=== PATIENT | female | born 1970 | race Caucasian/White ===

== ENCOUNTER 2017-03-06 09:14 | Emergency (ER) | payer BC ==
[~2017-03-06] VITALS: Ht 165.1 cm; Wt 78.8 kg
[~2017-03-06 09:14] MED LIST: FLUO20CA20 OR; FLV400 PO; NAPR500T2 OR
[2017-03-06 09:18] VITALS: TEMP 36.8; Ht 165.1 cm; Wt 78.8 kg
[2017-03-06] MEDS ORDERED: KETOROLAC TROMETHAMINE 30 MG/ML VIAL IV STA (09:45)
[2017-03-06 10:12] LABS: BASO % 0.4 %; BASO ABS # 0.02 K/uL (0-0.2); HEMATOCRIT 29.5 % (37-47); IG% 0.2 %; LYMPH % 21.8 %; MEAN CELL VOLUME 110.1 fL (80-100); MEAN CORPUSCULAR HEMOGLOBIN 36.6 pg (25-34); MEAN CORPUSCULAR HGB CONC 33.2 g/dl (32-36); MEAN PLATELET VOLUME 10.5 fL (7.4-10.4); MONO % 6.7 %; NEUT % 69.9 %; PLATELET COUNT 197 K/uL (130-400); RED BLOOD COUNT 2.68 M/uL (4.2-5.4); WHITE BLOOD COUNT 5.05 K/uL (4.8-10.8)
[2017-03-06 10:29] LABS: COMPLETE YES; INR 1.1 (0.9-1.1); OVALOCYTES 1+; PARTIAL THROMBOPLASTIN RATIO 0.9; PROTHROMBIN TIME (PATIENT) 11.4 SECONDS (9.0-12.0)
[2017-03-06 10:33] LABS: BUN/CREATININE RATIO 23.4 (10-20); CALCIUM 8.5 mg/dl (8.5-10.1); CREATININE 0.57 mg/dl (0.60-1.20)
--- NOTE | 2017-03-06 10:46 | DIAGNOSTIC IMAGING REPORT ---
RIGHT SHOULDER MIN 2 VIEWS ROUTINE HISTORY:46 yearsFemaleeval for fx Right COMPARISON: Chest 12/23/2009 TECHNIQUE: 3 views of the right shoulder FINDINGS: No acute fracture or dislocation. No significant degenerative changes. Imaged lung harmon are clear. IMPRESSION: No acute bony abnormality. The above report was generated using voice recognition software. It may contain grammatical, syntax or spelling errors. Electronically signed by: Kevin Kendall M.D. 03/06/2017 10:45 AM Dictated Date/Time: 03/06/2017 10:44 AM
--- NOTE | 2017-03-06 10:49 | DIAGNOSTIC IMAGING REPORT ---
TWO VIEW CHEST CLINICAL HISTORY: Atypical chest pain. FINDINGS: PA and lateral chest radiographs are compared to study dated 11/26/2009. The heart is top normal for projection. The mediastinal contour is within normal limits. The pulmonary vasculature is noncongested. The lungs and pleural spaces are clear. There is no pneumothorax. The skeletal structures are osteopenic. The bony thorax appears intact. Cholecystectomy clips are seen in the right upper quadrant. IMPRESSION: No active disease in the chest. Electronically signed by: Gianfranco Shen M.D. 03/06/2017 10:48 AM Dictated Date/Time: 03/06/2017 10:47 AM
--- NOTE | 2017-03-06 10:51 | DIAGNOSTIC IMAGING REPORT ---
C-SPINE ROUTINE 4 OR 5 VIEWS HISTORY:46 yearsFemale acute neck pain which radiates into the right shoulder. COMPARISON: None available. TECHNIQUE: 6 views of the cervical spine FINDINGS: The seventh vertebral segment is not well seen on several images secondary to overlying soft tissue. There is intervertebral disc space narrowing at several levels, most pronounced at C6-C7. The visualized odontoid process and lateral pillars of C1 appear intact. There is multilevel uncovertebral spurring and facet arthropathy which causes a degree of neuroforaminal stenosis on the left at C3-C4 and on the right at C2-C3, C3-C4 and C4-C5. No acute fracture or dislocation. There is no prevertebral soft tissue swelling. Imaged lung apices appear clear. IMPRESSION: 1. No acute fracture or dislocation identified. 2. Multilevel intervertebral disc space narrowing, uncovertebral spurring and facet arthropathy as above results in varying degrees of neuroforaminal stenosis. The above report was generated using voice recognition software. It may contain grammatical, syntax or spelling errors. Electronically signed by: Kevin Kendall M.D. 03/06/2017 10:50 AM Dictated Date/Time: 03/06/2017 10:47 AM
[2017-03-06] MEDS ORDERED: OXYCODONE HCL IR 5 MG TAB (IMMEDIATE RELEASE) PO STA (11:03)
[2017-03-06] MEDS ORDERED: IBUP-1050 PO (11:08)
[2017-03-06] MEDS ORDERED: ONDANSETRON INJ 2 MG/ML 2 ML VIAL IV STA (11:44)
[2017-03-06] MEDS ORDERED: MoRPHine SULFATE 4 MG/ML 1 ML CARP\\VIAL IV STA (11:44)
[2017-03-06] MEDS ORDERED: OXYC1TAB3 PO (13:41)
[2017-03-06 13:51] VITALS: BP 136/74; PULSE 62; O2SAT 95
--- NOTE | 2017-03-06 17:08 | EMERGENCY ROOM VISIT NOTE ---
History Report prepared by Gumaro: Julia Urban Under the Supervision of: Dr. Dre Hand M.D. First contact with patient: 09:36 Chief Complaint: SHOULDER PAIN Stated Complaint: CHEST PAIN, SHOOTING PAIN SHOULDER History of Present Illness The patient is a 46 year old female who presents to the Emergency Room with complaints of constant right shoulder pain beginning 40 minutes prior to arrival. The patient notes that the pain originates in her neck and wraps around the lateral aspect of her right shoulder and outer aspect of her arm to the elbow. She notes the pain worsens with movement. The patient states that she was getting ready to take a shower when the pain began. The patient describes the pain radiating down her arm as a sharp shooting sensation. She also notes mild midsternum chest pain that she describes as dull in sensation. The patient has full sensation in her fingers. The patient has been using an ice pack on her shoulder which help to mildly alleviate her pain. She has not taken any pain medication today. She denies swelling to lower extremities, recent fevers, or recent injuries. The patient has a history of Fibromyalgia and anemia. Source of History: patient Onset: 40 minutes [employer] Position: shoulder (right) Timing: constant Modifying Factors (Worsening): movement Associated Symptoms: + chest pain (dull), No fevers Note: The patient is experiencing a sharp shooting pain in her right arm. She has full sensation of her fingers. The patient denies recent injuries or swelling to her lower extremities. Review of Systems See HPI for pertinent positives & negatives. A total of 10 systems reviewed and were otherwise negative. Past Medical & Surgical Medical Problems: (1) Fibromyalgia Family History Patient reports no known family medical history. Social History Smoking Status: Never Smoker Smokeless Tobacco Use: No Marital Status: Housing Status: lives with family Current/Historical Medications Scheduled Ibuprofen (Advil), 200-600 MG PO Q4H Scheduled PRN Oxycodone Ir (Roxicodone Ir), 5 MG PO Q4H PRN for Pain Allergies Coded Allergies: Penicillins (Verified Allergy, Unknown, DOESN'T KNOW WHAT REACTION SHE HAD , 03/06/17) Physical Exam Vital Signs Date Time Temp Pulse Resp B/P (MAP) Pulse Ox O2 Delivery O2 Flow Rate FiO2 03/06/17 13:51 62 16 136/74 95 03/06/17 12:11 67 18 150/91 97 Room Air 7/12/17 11:40 82 20 148/118 98 Room Air 03/06/17 10:43 70 16 125/70 97 Room Air 03/06/17 09:18 36.8 85 18 150/80 100 Room Air Physical Exam Constitutional: Vital signs reviewed. Eyes: Pupils are equal round reactive to light. Conjunctiva are noninjected. ENT: Pharynx is clear without erythema or exudate. Mucous membranes are moist. Neck supple without meningeal signs, no midline tenderness to cervical spine. Respiratory: Clear to auscultation bilaterally. Breath sounds are equal bilaterally. Cardiovascular: Regular rate and rhythm. No rubs or gallops. GI: Soft, nondistended and nontender. Bowel sounds are present. Musculoskeletal: No tenderness to right shoulder or upper extremity. Pain reproducible with any movement of right shoulder. No swelling. No lower extremity tenderness or edema. Integumentary: No cyanosis. Neurological: The patient is awake and alert. No deficits distally in right upper extremity. Psychiatric: Very anxious. Medical Decision & Procedures ER Provider Diagnostic Interpretation: X-ray results as stated below per interpretation by me and the radiologist: RIGHT SHOULDER MIN 2 VIEWS ROUTINE HISTORY:46 yearsFemaleeval for fx Right COMPARISON: Chest 12/23/2009 TECHNIQUE: 3 views of the right shoulder FINDINGS: No acute fracture or dislocation. No significant degenerative changes. Imaged lung harmon are clear. IMPRESSION: No acute bony abnormality. The above report was generated using voice recognition software. It may contain grammatical, syntax or spelling errors. Electronically signed by: Kevin Kendall M.D. 03/06/2017 10:45 AM Dictated Date/Time: 03/06/2017 10:44 AM TWO VIEW CHEST CLINICAL HISTORY: Atypical chest pain. FINDINGS: PA and lateral chest radiographs are compared to study dated 11/26/2009. The heart is top normal for projection. The mediastinal contour is within normal limits. The pulmonary vasculature is noncongested. The lungs and pleural spaces are clear. There is no pneumothorax. The skeletal structures are osteopenic. The bony thorax appears intact. Cholecystectomy clips are seen in the right upper quadrant. IMPRESSION: No active disease in the chest. Electronically signed by: Gianfranco Shen M.D. 03/06/2017 10:48 AM Dictated Date/Time: 03/06/2017 10:47 AM C-SPINE ROUTINE 4 OR 5 VIEWS HISTORY:46 yearsFemale acute neck pain which radiates into the right shoulder. COMPARISON: None available. TECHNIQUE: 6 views of the cervical spine FINDINGS: The seventh vertebral segment is not well seen on several images secondary to overlying soft tissue. There is intervertebral disc space narrowing at several levels, most pronounced at C6-C7. The visualized odontoid process and lateral pillars of C1 appear intact. There is multilevel uncovertebral spurring and facet arthropathy which causes a degree of neuroforaminal stenosis on the left at C3-C4 and on the right at C2-C3, C3-C4 and C4-C5. No acute fracture or dislocation. There is no prevertebral soft tissue swelling. Imaged lung apices appear clear. IMPRESSION: 1. No acute fracture or dislocation identified. 2. Multilevel intervertebral disc space narrowing, uncovertebral spurring and facet arthropathy as above results in varying degrees of neuroforaminal stenosis. The above report was generated using voice recognition software. It may contain grammatical, syntax or spelling errors. Electronically signed by: Kevin Kendall M.D. 03/06/2017 10:50 AM Dictated Date/Time: 03/06/2017 10:47 AM Laboratory Results 03/06/17 10:00 Red Blood Count 2.68, Mean Corpuscular Volume 110.1, Mean Corpuscular Hemoglobin 36.6, Mean Corpuscular Hemoglobin Concent 33.2, Mean Platelet Volume 10.5, Neutrophils (%) (Auto) 69.9, Lymphocytes (%) (Auto) 21.8, Monocytes (%) ( Auto) 6.7, Eosinophils (%) (Auto) 1.0, Basophils (%) (Auto) 0.4, Neutrophils # ( Auto) 3.53, Lymphocytes # (Auto) 1.10, Monocytes # (Auto) 0.34, Eosinophils # ( Auto) 0.05, Basophils # (Auto) 0.02 03/06/17 10:00 Test 03/06/17 10:00 03/06/17 10:02 03/06/17 12:50 White Blood Count 5.05 K/uL (4.8-10.8) Red Blood Count 2.68 M/uL (4.2-5.4) Hemoglobin 9.8 g/dL (12.0-16.0) Hematocrit 29.5 % (37-47) Mean Corpuscular Volume 110.1 fL (80-100) Mean Corpuscular Hemoglobin 36.6 pg (25-34) Mean Corpuscular Hemoglobin Concent 33.2 g/dl (32-36) Platelet Count 197 K/uL (130-400) Mean Platelet Volume 10.5 fL (7.4-10.4) Neutrophils (%) (Auto) 69.9 % Lymphocytes (%) (Auto) 21.8 % Monocytes (%) (Auto) 6.7 % Eosinophils (%) (Auto) 1.0 % Basophils (%) (Auto) 0.4 % Neutrophils # (Auto) 3.53 K/uL (1.4-6.5) Lymphocytes # (Auto) 1.10 K/uL (1.2-3.4) Monocytes # (Auto) 0.34 K/uL (0.11-0.59) Eosinophils # (Auto) 0.05 K/uL (0-0.5) Basophils # (Auto) 0.02 K/uL (0-0.2) RDW Standard Deviation 58.6 fL (36.4-46.3) RDW Coefficient of Variation 14.6 % (11.5-14.5) Immature Granulocyte % (Auto) 0.2 % Immature Granulocyte # (Auto) 0.01 K/uL (0.00-0.02) Macrocytosis PRESENT Ovalocytes 1+ Prothrombin Time 11.4 SECONDS (9.0-12.0) Prothromb Time International Ratio 1.1 (0.9-1.1) Activated Partial Thromboplast Time 24.0 SECONDS (21.0-31.0) Partial Thromboplastin Ratio 0.9 Anion Gap 6.0 mmol/L (3-11) Est Creatinine Clear Calc Drug Dose 125.2 ml/min Estimated GFR () 127.1 Estimated GFR (Non- 109.6 BUN/Creatinine Ratio 23.4 (10-20) Calcium Level 8.5 mg/dl (8.5-10.1) Bedside Troponin I < 0.030 ng/ml (0-0.045) Troponin I < 0.015 ng/ml (0-0.045) Laboratory results as reviewed by me. Medications Administered Medications (Trade) Dose Ordered Sig/Ileana Route Start Time Stop Time Status Last Admin Dose Admin Ketorolac Tromethamine (Toradol Inj) 10 mg NOW STAT IV 03/06/17 09:45 03/06/17 09:47 DC 03/06/17 10:06 10 MG Oxycodone HCl (Roxicodone Immediate Rel Tab) 5 mg NOW STAT PO 03/06/17 11:03 03/06/17 11:04 DC 03/06/17 11:17 5 MG Morphine Sulfate (MoRPHine SULFATE INJ) 2 mg NOW STAT IV 03/06/17 11:44 03/06/17 11:45 DC 03/06/17 12:11 2 MG Ondansetron HCl (Zofran Inj) 4 mg NOW STAT IV 03/06/17 11:44 03/06/17 11:45 DC 03/06/17 12:10 4 MG ECG Indication: back/shoulder pain Rate (beats per minute): 67 Rhythm: normal sinus Findings: no acute ischemic change, no ectopy, other (limited interpretation secondary to motion artifact) ED Course 0937: The patient was evaluated in room B12. A complete history and physical exam was performed. 0945: Toradol Inj 10 mg IV. 1101: I reviewed the test results with the patient. She says she is still having significant pain to her shoulder she is requesting stronger pain medication. I discussed narcotics and the potential adverse affects and addiction potential. A second troponin will be done. If negative the patient can go home. 1103: Roxicodone Immediate Rel Tab 5 mg PO. 1144: Zofran Inj 4 mg IV, Morphine Sulfate Inj 2 mg IV. 1323: I reevaluated the patient. She is feeling better. Waiting for second troponin. 1342: Upon reevaluation, the patient appeared to have improvement of her symptoms. I discussed tonight's findings with her. She verbalized agreement of the treatment plan. She was discharged home. Medical Decision This is a 46-year-old female presents with chest pain and shoulder and neck pain. Differential diagnosis includes cervical disc disease, radiculopathy, arthritis, tendinitis, anxiety, SC. I did perform a limited focused review of portions of the patient's old chart on the electronic medical record. The patient has had no recent pertinent visits to this hospital. Medication Reconciliation: I attest that I have personally reviewed the patient' s current medication list. Blood Pressure Screening: Patient was found to have an elevated blood pressure and was referred to their primary doctor for recheck and further treatment. I did evaluate the patient as noted above. The patient is presenting with the acute onset of right shoulder and neck pain. It is sharp and shooting and reproducible with movement of her shoulder as well as flexion of her neck. Her symptoms seem consistent with cervical radicular pain. She also complains of some chest pain but is extremely anxious. She has no known cardiac risk factors. She is hypertensive here but she is also very anxious and in pain. IV access was established. The patient was placed on a continuous monitoring and evaluation advisor. I did order and personally review the patient's 12-lead EKG and x- rays as described above. I did order and review the patient's blood work as noted in the electronic medical record. Troponin 2 is negative. I did treat the patient with IV Toradol and morphine. On reassessment she is feeling better. I did discuss the test results with the patient. I did recommend close follow up with her doctor for further evaluation of her chest pain and other symptoms. She was given a prescription for oxycodone and given precautions regarding this medication. She was discharged in good condition with return instructions as outlined below. [place] Drug Monitoring Program Search Results: patient reviewed within database (no matching patient found) Impression Primary Impression: Cervical radiculopathy Additional Impression: Acute chest pain Scribe Attestation The scribe's documentation has been prepared under my direct and personally reviewed by me in its entirety. I confirm that the note above accurately reflects all work, treatment, procedures, and medical decision making performed by me. Departure Information Dispostion Home / Self-Care Prescriptions Oxycodone Ir (Roxicodone Ir) 5 Mg Tab 5 MG PO Q4H Y for Pain, #20 TAB Prov: Dre Hand M.D. 03/06/17 Referrals No Doctor, Assigned (PCP) Forms HOME CARE DOCUMENTATION FORM, IMPORTANT VISIT INFORMATION Patient Instructions ED Chest Pain Atypical Unkn Cause, ED Neck Pain No Trauma, My [facility] Additional Instructions You have been examined and treated today on an emergency basis only. This is not a substitute for, or an effort to provide, complete comprehensive medical care. It is impossible to recognize and treat all injuries or illnesses in a single emergency department visit. It is therefore important that you follow up closely with your physician and spine doctor at [facility]. Call as soon as possible for an appointment. Return for worsening symptoms or if you develop fever, difficulty breathing, vomiting, abdominal pain, loss of control of your bowel or bladder, numbness or weakness to your arms or legs, numbness to your private area, difficulty urinating, or any other concerning symptoms. Problem Qualifiers
== END 2017-03-06 13:52 | disposition home or self-care (01) ==
LOC: C.EDB 09:14
DX: M54.12 Radiculopathy, cervical region (principal); R07.9 Chest pain, unspecified; D64.9 Anemia, unspecified; M79.7 Fibromyalgia

== ENCOUNTER 2017-12-09 16:13 | Emergency (ER) | payer OTHER ==
[~2017-12-09] VITALS: Ht 162.6 cm; Wt 74.9 kg
[~2017-12-09 16:13] MED LIST changes: -FLUO20CA20 OR; -FLV400 PO; +IBUP-1050 PO; -NAPR500T2 OR
[2017-12-09 16:32] VITALS: TEMP 36.6; Ht 162.6 cm; Wt 74.9 kg
[2017-12-09] MEDS ORDERED: ACETAMINOPHEN 500 MG TAB PO STA (16:48)
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
[2017-12-09 18:02] VITALS: BP 152/88; PULSE 82; O2SAT 98
[2017-12-09] MEDS ORDERED: MULT-240 PO (18:35)
[2017-12-09] MEDS ORDERED: FOLI1TAB8 PO (18:35)
[2017-12-09] MEDS ORDERED: FERR1TAB23 PO (18:35)
[2017-12-09] MEDS ORDERED: COEN100C15 PO (18:35)
[2017-12-09] MEDS ORDERED: OMEG10007 PO (18:35)
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
== END 2017-12-09 18:40 | disposition home or self-care (01) ==
LOC: C.EDB 16:15 → C.EDD 18:40
DX: S06.0X0A Concussion without loss of consciousness, initial encounter (principal); S16.1XXA Strain of muscle, fascia and tendon at neck level, initial encounter; S20.20XA Contusion of thorax, unspecified, initial encounter; V49.40XA Driver injured in collision with unspecified motor vehicles in traffic accident, initial encounter; M79.7 Fibromyalgia

== ENCOUNTER 2024-10-08 13:56 | Inpatient (IN) ==
[2024-10-08 15:21] LABS: Alanine Aminotransferase 10 U/L (7-52); Albumin Globulin Ratio 2.6 (0.9-2); Albumin Level 4.1 gm/dl (3.4-5.0); Alkaline Phosphatase 31 U/L (34-104); Anion Gap 6 (3-11); Aspartate Aminotransferase 12 U/L (13-39); BUN Creatinine Ratio 28.1 (10-20); Bilirubin,Total 1.7 mg/dl (0.2-1.0); Blood Urea Nitrogen 27 mg/dl (6-23); Calcium 7.9 mg/dl (8.6-10.3); Carbon Dioxide 26 mmol/L (21-32); Chloride 104 mmol/L (98-107); Creatinine Clr Calc Pharmacy 67.3 ml/min; Globulin 1.6 gm/dl (2.5-4.0); Glucose 141 mg/dl (70-99(Fasting)); Potassium 3.4 mmol/L (3.5-5.1); Sodium 136 mmol/L (136-145); Total Protein 5.7 gm/dl (6.0-8.3)
--- NOTE | 2024-10-08 15:37 | Emergency Department Note ---
Impression & Plan Hypotension, Anemia, Syncope, Seizure-like activity, Influenza A ED Provider Note NAME: BILLY CARPENTER AGE: 54 SEX: F : 1970 ARRIVES VIA: Ambulance INFORMANT: [Patient][family] ED PROVIDER(S): [Gianfranco Fernandez MD] CHIEF COMPLAINT: Possible seizure HISTORY OF PRESENT ILLNESS: The patient is a 54-year-old female whose had a cold and congestion for a few days. Yesterday, she missed work. Today, she was at lunch and began to feel dizzy. Apparently, she passed out. She had a second syncopal or near syncopal event and there was some seizure-like activity reported for a brief timeframe, maybe 30 seconds. The patient has no seizure history. Patient complains of congestion and fatigue, she feels a bit weak. She felt nauseated earlier and also noticed the headache earlier. She has not had vomiting, she has had some intermittent diarrhea. As per the EMS crew, her blood pressure was low when she was assessed at 77/50. The blood pressure improved with IV fluids. Of note, the patient was started on medication for high blood pressure a few months ago, she has been taking it as prescribed. PMHx/PSHx/Social Hx: See Below PHYSICAL EXAM: GENERAL: Patient is in no acute distress. HEENT: No acute trauma, normocephalic atraumatic, mucous membranes moist, no nasal congestion. NECK: No stridor, no adenopathy, no meningismus, trachea is midline. LUNGS: Clear to auscultation bilaterally, no wheeze, no rhonchi, breath sounds equal. HEART: Regular rate and rhythm, subtle systolic murmur at 2/6. ABDOMEN: Soft, nontender, no peritonitis. EXTREMITIES: No cyanosis, full range of motion of all the joints without pain or difficulty. NEUROLOGIC: Oriented x 3, no acute motor or sensory deficits, no focal weakness. SKIN: No jaundice, no diaphoresis. Pale Rectal: Brown stool, heme-negative, this exam was done with a battery tester present. DIFFERENTIAL DIAGNOSIS: Dehydration, UTI, seizure, electrolyte imbalance, dysrhythmia, viral illness, among others. EMERGENCY DEPARTMENT PROCEDURES: MEDICAL DECISION MAKING: There is a lower white blood cell count at 3.35. Hemoglobin was quite low at 6.8, this is a drop for him. I did perform a rectal exam, stool was brown and heme-negative. There was a normal platelet count. Calcium and potassium are both slightly low. There was no renal failure. There was a mild bilirubin elevation at 1.7. The remaining liver enzymes were unremarkable. Prolactin level was elevated at 46, this elevation could be consistent with seizure-like activity. Urinalysis did not show findings of infection. Respiratory bio fire was positive for influenza A. Chest film did not show pneumonia or CHF. Brain CT shows no acute bleed or mass effect. The patient had presented hypotensive. She was given 1 L of IV saline, she was ordered for 1 unit of packed red blood cells to be transfused in the ED. She did sign the appropriate paperwork for the transfusion. The patient is in need of a hospital stay. She had syncope earlier, likely from dehydration and her anemia. She is influenza positive and this may have started off the whole process. Some seizure-like activity was described prior to arrival, however, I suspect this activity was more so from her syncope than epilepsy. I did speak at length with the patient. I spoke with the case management team. The on-call hospitalist was consulted. Of note, the patient's blood pressure has improved with IV saline. She is currently resting comfortably. Prior/Outside records/notes reviewed: Today's EMS notes describing her presentation and transport to this hospital. ECG per my interpretation: Indication was seizure or syncope. The ECG shows a normal sinus rhythm with a rate of 74. There is some nonspecific ST change. There is no acute ST elevation, no PVCs. The QTc is 470. Continuous Cardiac Monitoring per my interpretation: An order was placed for continuous cardiac monitoring. The monitor shows a rate of 79 with normal sinus rhythm. Imaging/x-ray results per my interpretation: Chest x-ray does not show pneumonia or CHF. No significant cardiomegaly. Chronic Medical/Social conditions affecting care: None Care/Management discussed with: Case management, the on-call hospitalist. Level of care consideration(s): After review of the information above and other included data: --I believe the patient requires escalation of care to admission Critical Care Note: I have personally spent 41 minutes of critical care time in the direct management of this patient. This includes bedside care, interpretation of diagnostic studies, and testing, discussion with consultants, patient, and family members, and other required patient management activities. This 41 minutes is in excess of all separately billable procedures. DISPOSITION: Admission Past Med/Surg History Problem List (Updated 10/08/24 @ 18:33 by Gianfranco Fernandez MD) Influenza A (Acute) Seizure-like activity (Acute) Syncope (Acute) Anemia (Acute) Hypotension (Acute) Hypokalemia Syncope Influenza Anemia Acute chest pain (Acute) Cervical radiculopathy (Acute) Medical History HTN (hypertension) Hereditary spherocytosis Fibromyalgia Migraines Surgical History (Updated 10/08/24 @ 18:10 by Riya Jackson PA-C) History of colonoscopy History of cholecystectomy Family History (Updated 10/08/24 @ 18:10 by Riya Jackson PA-C) Other Breast cancer Hypertension Stroke Social History Smoking Status: Never smoker Hx Alcohol Use: No Hx Substance Use: No Preferred Language: [place] Feels Safe at Home: Yes Allergies Allergies Allergy/AdvReac Type Severity Reaction Status Date / Time Penicillins Allergy Unknown DOESN'T Verified 05/07/24 16:51 KNOW WHAT REACTION SHE HAD Home Meds Home Medications Medication Instructions Recorded Confirmed ibuprofen 200 mg tablet 200 mg PO Q6H PRN Pain 07/04/21 10/08/24 methocarbamol 500 mg tablet 500 mg PO DAILY PRN Muscle Spasm 07/04/21 10/08/24 calcium carbonate 500 mg PO QPM 05/07/24 10/08/24 cholecalciferol (vitamin D3) 25 1,000 mcg PO QPM 05/07/24 10/08/24 mcg (1,000 unit) tablet gabapentin 400 mg capsule 400 mg PO DAILY PRN Pain 05/07/24 10/08/24 multivitamin 1 tab PO QPM 05/07/24 10/08/24 alendronate 70 mg tablet 70 mg PO WK 10/08/24 10/08/24 hyoscyamine sulfate 0.125 mg tablet 0.125 mg PO Q4H PRN cramp/abd pain 10/08/24 10/08/24 lisinopril 10 1 tab PO QAM 10/08/24 10/08/24 mg-hydrochlorothiazide 12.5 mg tablet omeprazole 40 mg capsule,delayed 40 mg PO DAILY PRN Other 10/08/24 10/08/24 release Results & Data (ED) Vital Signs Vital Signs - 24 hr 10/08/24 13:46 10/08/24 14:14 10/08/24 14:15 Temperature 36.6 C Temperature Source Oral Pulse Rate 77 73 Pulse Rate [Apical] Pulse Rate from SpO2 Sensor Pulse Rhythm [Apical] Pulse Strength [Apical] Respiratory Rate 16 Respiratory Effort / Characteristics Respiratory Depth Respiratory Pattern Blood Pressure 88/51 L 91/54 L Blood Pressure [Right Arm] Blood Pressure Mean 63 62 Blood Pressure Mean [Right Arm] Blood Pressure Position [Right Arm] Pulse Oximetry 98 Oxygen Delivery Method Room Air Sepsis Recent Fever Within 48 Hours No Sepsis New/Unexplained Change in Mental Status No Sepsis Action Taken by Nursing No Action Required 10/08/24 14:15 10/08/24 14:15 10/08/24 14:15 Temperature Temperature Source Pulse Rate 75 Pulse Rate [Apical] Pulse Rate from SpO2 Sensor 75 Pulse Rhythm [Apical] Pulse Strength [Apical] Respiratory Rate 28 H Respiratory Effort / Characteristics Respiratory Depth Respiratory Pattern Blood Pressure 91/54 L 91/54 L Blood Pressure [Right Arm] Blood Pressure Mean 62 62 Blood Pressure Mean [Right Arm] Blood Pressure Position [Right Arm] Pulse Oximetry 96 Oxygen Delivery Method Sepsis Recent Fever Within 48 Hours Sepsis New/Unexplained Change in Mental Status Sepsis Action Taken by Nursing 10/08/24 14:18 10/08/24 14:20 10/08/24 14:21 Temperature Temperature Source Pulse Rate 78 76 Pulse Rate [Apical] Pulse Rate from SpO2 Sensor 78 76 Pulse Rhythm [Apical] Pulse Strength [Apical] Respiratory Rate 16 21 Respiratory Effort / Characteristics Respiratory Depth Respiratory Pattern Blood Pressure 99/58 L Blood Pressure [Right Arm] Blood Pressure Mean 65 Blood Pressure Mean [Right Arm] Blood Pressure Position [Right Arm] Pulse Oximetry 98 99 Oxygen Delivery Method Sepsis Recent Fever Within 48 Hours Sepsis New/Unexplained Change in Mental Status Sepsis Action Taken by Nursing 10/08/24 14:30 10/08/24 14:30 10/08/24 14:30 Temperature Temperature Source Pulse Rate 73 Pulse Rate [Apical] Pulse Rate from SpO2 Sensor 74 Pulse Rhythm [Apical] Pulse Strength [Apical] Respiratory Rate 21 Respiratory Effort / Characteristics Respiratory Depth Respiratory Pattern Blood Pressure 97/59 L 97/59 L Blood Pressure [Right Arm] Blood Pressure Mean 70 70 Blood Pressure Mean [Right Arm] Blood Pressure Position [Right Arm] Pulse Oximetry 98 Oxygen Delivery Method Sepsis Recent Fever Within 48 Hours Sepsis New/Unexplained Change in Mental Status Sepsis Action Taken by Nursing 10/08/24 14:54 10/08/24 15:04 10/08/24 15:46 Temperature Temperature Source Pulse Rate 79 Pulse Rate [Apical] 81 Pulse Rate from SpO2 Sensor 80 Pulse Rhythm [Apical] Regular Pulse Strength [Apical] Normal Respiratory Rate 23 18 Respiratory Effort / Characteristics Non-Labored Spontaneous Respiratory Depth Normal Respiratory Pattern Regular Blood Pressure Blood Pressure [Right Arm] 106/61 Blood Pressure Mean Blood Pressure Mean [Right Arm] 76 Blood Pressure Position [Right Arm] Lying Pulse Oximetry 94 95 95 Oxygen Delivery Method Room Air Room Air Sepsis Recent Fever Within 48 Hours Sepsis New/Unexplained Change in Mental Status Sepsis Action Taken by Nursing 10/08/24 17:36 10/08/24 17:52 Temperature Temperature Source Pulse Rate 80 Pulse Rate [Apical] 76 Pulse Rate from SpO2 Sensor Pulse Rhythm [Apical] Pulse Strength [Apical] Respiratory Rate 18 Respiratory Effort / Characteristics Non-Labored Spontaneous Respiratory Depth Normal Respiratory Pattern Regular Blood Pressure Blood Pressure [Right Arm] 129/74 Blood Pressure Mean Blood Pressure Mean [Right Arm] 92 Blood Pressure Position [Right Arm] Lying Pulse Oximetry 94 Oxygen Delivery Method Sepsis Recent Fever Within 48 Hours Sepsis New/Unexplained Change in Mental Status Sepsis Action Taken by Long Term Medications Current Medication List: was personally reviewed by me Laboratory Data Attestation: I reviewed the patient's lab results. 10/08/24 14:05 10/08/24 14:05 Lab Results 10/08/24 10/08/24 10/08/24 Range/Units 14:05 14:06 15:53 WBC 3.35 L (4.8-10.8) K/ul RBC 1.80 L (4.20-5.40) M/uL Hgb 6.8 L* (12.0-16.0) g/dl Hct 20.2 L* (37.0-47.0) % MCV 112.2 H (80.0-100.0) fL MCH 37.8 H (25.0-34.0) pg MCHC 33.7 (32.0-36.0) g/dL RDW Std Deviation 59.2 H (36.4-46.3) fL RDW Coeff of Quang 14.5 (11.5-14.5) % Plt Count 138 (130-400) K/uL MPV 11.1 (9.4-12.4) fL Immature Gran % (Auto) 0.3 % Neut % (Auto) 75.2 % Lymph % (Auto) 16.1 % [place] % (Auto) 7.8 % Eos % (Auto) 0.3 % Baso % (Auto) 0.3 % Neut # (Auto) 2.52 (1.40-6.50) K/uL Lymph # (Auto) 0.54 L (1.20-3.40) K/uL [place] # (Auto) 0.26 (0.11-0.59) K/uL Eos # (Auto) 0.01 (0.00-0.50) K/uL Baso # (Auto) 0.01 (0.00-0.20) K/uL Immature Gran # (Auto) 0.01 (0.01-0.20) K/uL Polychromasia 1+ Anisocytosis Present Sodium 136 (136-145) mmol/L Potassium 3.4 L (3.5-5.1) mmol/L Chloride 104 (98-107) mmol/L Carbon Dioxide 26 (21-32) mmol/L Anion Gap 6 (3-11) BUN 27 H (6-23) mg/dl Creatinine 0.96 (0.6-1.2) mg/dl Est Cr Clr Drug Dosing 67.3 ml/min eGFR 69.44 BUN/Creatinine Ratio 28.1 H (10-20) Glucose 141 H (70-99(Fasting)) mg/dl Calcium 7.9 L (8.6-10.3) mg/dl Magnesium 2.0 (1.7-2.4) mg/dl Iron 28 L (35-150) mcg/dl Unsaturated IBC 180 (155-355) mcg/dl Transferrin 158 L (200-360) mg/dl Total Bilirubin 1.7 H (0.2-1.0) mg/dl AST 12 L (13-39) U/L ALT 10 (7-52) U/L Alkaline Phosphatase 31 L (34-104) U/L Troponin I High Sens < 2.3 (0-14) pg/ml Total Protein 5.7 L (6.0-8.3) gm/dl Albumin 4.1 (3.4-5.0) gm/dl Globulin 1.6 L (2.5-4.0) gm/dl Albumin/Globulin Ratio 2.6 H (0.9-2) Prolactin 46.91 ng/ml Urine Color Urine Appearance (Clear) Urine pH (4.5-7.5) Ur Specific [place] (1.000-1.030) Urine Protein (Negative) Urine Glucose (UA) (Negative) Urine Ketones (Negative) Urine Blood (Negative) Urine Nitrite (Negative) Urine Bilirubin (Negative) Urine Urobilinogen (Negative) Ur Leukocyte Esterase (Negative) Urine WBC (Auto) (0-5) /hpf Urine RBC (Auto) (0-2) /hpf U Hyaline Cast (Auto) (0-2) /lpf U Epithel Cells (Auto) (0-2) /hpf Urine Bacteria (Auto) (None Seen) Nasal Influ A H1 2008 PCR DETECTED A (NotDetected) Adenovirus (PCR) Not Detected (NotDetected) B. pertussis DNA (PCR) Not Detected (NotDetected) B.parapertussis DNA PCR Not Detected (NotDetected) C. pneumoniae DNA (PCR) Not Detected (NotDetected) Coronavirus OC43 (PCR) Not Detected (NotDetected) Coronavirus HKU1 (PCR) Not Detected (NotDetected) Coronavirus 229E (PCR) Not Detected (NotDetected) SARS-CoV-2 (PCR) Not Detected (NotDetected) Coronavirus NL63 (PCR) Not Detected (NotDetected) Human Metapneumovir PCR Not Detected (NotDetected) Influenza Type B (PCR) Not Detected (NotDetected) M. pneumoniae (PCR) Not Detected (NotDetected) Parainfluenza 1 (PCR) Not Detected (NotDetected) Parainfluenza 2 (PCR) Not Detected (NotDetected) Parainfluenza 3 (PCR) Not Detected (NotDetected) Parainfluenza 4 (PCR) Not Detected (NotDetected) RSV (PCR) Not Detected (NotDetected) Entero/Rhino (PCR) Not Detected (NotDetected) Blood Type Antibody Screen Crossmatch 10/08/24 10/08/24 Range/Units 16:17 16:55 WBC (4.8-10.8) K/ul RBC (4.20-5.40) M/uL Hgb (12.0-16.0) g/dl Hct (37.0-47.0) % MCV (80.0-100.0) fL MCH (25.0-34.0) pg MCHC (32.0-36.0) g/dL RDW Std Deviation (36.4-46.3) fL RDW Coeff of Quang (11.5-14.5) % Plt Count (130-400) K/uL MPV (9.4-12.4) fL Immature Gran % (Auto) % Neut % (Auto) % Lymph % (Auto) % [place] % (Auto) % Eos % (Auto) % Baso % (Auto) % Neut # (Auto) (1.40-6.50) K/uL Lymph # (Auto) (1.20-3.40) K/uL [place] # (Auto) (0.11-0.59) K/uL Eos # (Auto) (0.00-0.50) K/uL Baso # (Auto) (0.00-0.20) K/uL Immature Gran # (Auto) (0.01-0.20) K/uL Polychromasia Anisocytosis Sodium (136-145) mmol/L Potassium (3.5-5.1) mmol/L Chloride (98-107) mmol/L Carbon Dioxide (21-32) mmol/L Anion Gap (3-11) BUN (6-23) mg/dl Creatinine (0.6-1.2) mg/dl Est Cr Clr Drug Dosing ml/min eGFR BUN/Creatinine Ratio (10-20) Glucose (70-99(Fasting)) mg/dl Calcium (8.6-10.3) mg/dl Magnesium (1.7-2.4) mg/dl Iron (35-150) mcg/dl Unsaturated IBC (155-355) mcg/dl Transferrin (200-360) mg/dl Total Bilirubin (0.2-1.0) mg/dl AST (13-39) U/L ALT (7-52) U/L Alkaline Phosphatase (34-104) U/L Troponin I High Sens (0-14) pg/ml Total Protein (6.0-8.3) gm/dl Albumin (3.4-5.0) gm/dl Globulin (2.5-4.0) gm/dl Albumin/Globulin Ratio (0.9-2) Prolactin ng/ml Urine Color Yellow Urine Appearance Clear (Clear) Urine pH 5.5 (4.5-7.5) Ur Specific [place] 1.015 (1.000-1.030) Urine Protein Negative (Negative) Urine Glucose (UA) Negative (Negative) Urine Ketones Negative (Negative) Urine Blood Negative (Negative) Urine Nitrite Negative (Negative) Urine Bilirubin Negative (Negative) Urine Urobilinogen Negative (Negative) Ur Leukocyte Esterase Trace H (Negative) Urine WBC (Auto) 0-5 (0-5) /hpf Urine RBC (Auto) 0-2 (0-2) /hpf U Hyaline Cast (Auto) 11-20 H (0-2) /lpf U Epithel Cells (Auto) 6-10 H (0-2) /hpf Urine Bacteria (Auto) None Seen (None Seen) Nasal Influ A H1 2009 PCR (NotDetected) Adenovirus (PCR) (NotDetected) B. pertussis DNA (PCR) (NotDetected) B.parapertussis DNA PCR (NotDetected) C. pneumoniae DNA (PCR) (NotDetected) Coronavirus OC43 (PCR) (NotDetected) Coronavirus HKU1 (PCR) (NotDetected) Coronavirus 229E (PCR) (NotDetected) SARS-CoV-2 (PCR) (NotDetected) Coronavirus NL63 (PCR) (NotDetected) Human Metapneumovir PCR (NotDetected) Influenza Type B (PCR) (NotDetected) M. pneumoniae (PCR) (NotDetected) Parainfluenza 1 (PCR) (NotDetected) Parainfluenza 2 (PCR) (NotDetected) Parainfluenza 3 (PCR) (NotDetected) Parainfluenza 4 (PCR) (NotDetected) RSV (PCR) (NotDetected) Entero/Rhino (PCR) (NotDetected) Blood Type AB Positive Antibody Screen POSITIVE A Crossmatch See Detail Administered Medications Discontinued Medications Sodium Chloride (Nss) 1,000 mls @ 999 mls/hr IV .Q1H1M ONE Stop: 10/08/24 16:16 Last Infusion: 10/08/24 17:14 Dose: Infused Documented By: Admin: 10/08/24 15:55 Dose: 999 mls/hr Documented By: BECCA Sodium Chloride (Nss) 500 mls @ 999 mls/hr IV .Q31M ONE Stop: 10/08/24 18:08 Last Admin: 10/08/24 17:56 Dose: 999 mls/hr Documented By: BECCA Oseltamivir Phosphate (Oseltamivir Phosphate 75 Mg Cap) 75 mg PO NOW STA; Protocol Stop: 10/08/24 17:25 Last Admin: 10/08/24 17:56 Dose: 75 mg Documented By: BECCA Imaging Data Radiologist's Impression: Chest X-Ray 10/08/24 15:16 Chest radiograph, one view History: Shortness of breath Comparison: 05/07/2024 Findings: Single AP view of the chest performed. No focal consolidation or pleural effusion. No pneumothorax. The cardiomediastinal silhouette is within normal limits. Normal pulmonary vascularity. No evidence for lymphadenopathy. No visualized bony or soft tissue abnormality. Impression: Normal chest radiograph Electronically signed by Josh Mcgraw 10-08-2024 4:[address] 10/08/24 15:16 CT OF THE HEAD WITHOUT CONTRAST CLINICAL HISTORY: Syncope. Seizure. COMPARISON STUDY: Head CT August 18, 2012. CT DOSE: 547.75 mGy.cm TECHNIQUE: Helical axial images of the head were obtained without IV contrast. Automated exposure control was utilized for the study. A dose lowering technique was utilized adhering to the principles of ALARA. FINDINGS: No acute intracranial hemorrhage, midline shift or mass effect is present. The ventricular system is unremarkable. The basal cisterns are patent. No extra-axial collections are present. There are no findings to suggest acute dural sinus thrombosis or acute territorial infarct. No significant calvarial abnormalities are present. There is minimal sinus mucosal thickening. The adenoids are prominent. Several sebaceous cysts within the scalp are again noted. IMPRESSION: 1. No acute intracranial findings. 2. No calvarial fractures. ACT 112: Negative or not required by law. Electronically signed by: Kelton Rooney M.D. 10/08/2024 3:47 PM Discharge Plan Visit Data Chief Complaint: Seizure ED Provider: Gianfranco Fernandez Discharge Problem: Hypotension, Anemia, Syncope, Seizure-like activity, Influenza A Patient Disposition: Admitted As Inpatient Condition: Serious Forms Stand Alone Forms: [facility] Prescriptions Prescriptions: No Action methocarbamol 500 mg tablet 500 mg PO DAILY PRN (Reason: Muscle Spasm) ibuprofen 200 mg Tablet 200 mg PO Q6H PRN (Reason: Pain) alendronate 70 mg tablet 70 mg PO WK omeprazole 40 mg capsule,delayed release(DR/EC) 40 mg PO DAILY PRN (Reason: Other) hyoscyamine sulfate 0.125 mg tablet 0.125 mg PO Q4H PRN (Reason: cramp/abd pain) lisinopril-hydrochlorothiazide 10-12.5 mg tablet 1 tab PO QAM multivitamin [One A Day] Tablet 1 tab PO QPM Rx Instructions: before dinner gabapentin 400 mg capsule 400 mg PO DAILY PRN (Reason: Pain) calcium carbonate [Calcium 500] 500 mg calcium (1,250 mg) Tablet 500 mg PO QPM Rx Instructions: before dinner cholecalciferol (vitamin D3) 25 mcg (1,000 unit) Tablet 1,000 mcg PO QPM Rx Instructions: pt unsure of dose. Takes before dinner Referrals Referrals: Eugenio Flores MD [Primary Care Provider] - Discharge Problem: Hypotension Qualifiers: Hypotension type: unspecified hypotension type Qualified Code(s): I95.9 - Hypotension, unspecified Anemia Qualifiers: Anemia type: unspecified type Qualified Code(s): D64.9 - Anemia, unspecified Syncope Qualifiers: Syncope type: unspecified Qualified Code(s): R55 - Syncope and collapse
[2024-10-08 15:39] LABS: Hematocrit (blood only) 20.2 % (37.0-47.0); Hemoglobin 6.8 g/dl (12.0-16.0); Mean Corpuscular Hemoglobin 37.8 pg (25.0-34.0); Mean Corpuscular Hgb Conc 33.7 g/dL (32.0-36.0); Mean Corpuscular Volume 112.2 fL (80.0-100.0); Mean Platelet Volume 11.1 fL (9.4-12.4); Platelet Count 138 K/uL (130-400); RDW Coefficient of Variation 14.5 % (11.5-14.5); RDW Standard Deviation 59.2 fL (36.4-46.3); White Blood Count 3.35 K/ul (4.8-10.8)
--- NOTE | 2024-10-08 15:49 | CT Scan Report ---
CT OF THE HEAD WITHOUT CONTRAST CLINICAL HISTORY: Syncope. Seizure. COMPARISON STUDY: Head CT August 18, 2012. CT DOSE: 547.75 mGy.cm TECHNIQUE: Helical axial images of the head were obtained without IV contrast. Automated exposure con trol was utilized for the study. A dose lowering technique was utilized adhering to the principles o f ALARA. FINDINGS: No acute intracranial hemorrhage, midline shift or mass effect is present. The ventricular system is unremarkable. The basal cisterns are patent. No extra-axial collections are present. There are no findings to suggest acute dural sinus thrombosis or acute territorial infarct. No significant calvarial abnormalities are present. There is minimal sinus mucosal thickening. The adenoids are prom inent. Several sebaceous cysts within the scalp are again noted. IMPRESSION: 1. No acute intracranial findings. 2. No calvarial fractures. ACT 112: Negative or not required by law. Electronically signed by: Kelton Rooney M.D. 10/08/2024 3:47 PM
[2024-10-08 15:55] LABS: Troponin I High Sensitivity < 2.3 pg/ml (0-14)
[2024-10-08] MEDS: SODIUM CHLORIDE 0.9% 1,000 ML IV ONE (15:55)
[2024-10-08] MEDS ORDERED: SODIUM CHLORIDE 0.9% 100 ML IV PRN (15:59)
[2024-10-08] MEDS ORDERED: SODIUM CHLORIDE 0.9% 50 ML IV PRN (15:59)
[2024-10-08 16:14] LABS: Anisocytosis Present; Basophils # (auto) 0.01 K/uL (0.00-0.20); Basophils % (auto) 0.3 %; Eosinophils # (auto) 0.01 K/uL (0.00-0.50); Eosinophils % (auto) 0.3 %; Immature Granulocytes # (auto) 0.01 K/uL (0.01-0.20); Immature Granulocytes % (auto) 0.3 %; Lymphocytes # (auto) 0.54 K/uL (1.20-3.40); Lymphocytes % (auto) 16.1 %; Monocytes # (auto) 0.26 K/uL (0.11-0.59); Monocytes % (auto) 7.8 %; Neutrophils # (auto) 2.52 K/uL (1.40-6.50); Neutrophils % (auto) 75.2 %; Polychromasia 1+
--- NOTE | 2024-10-08 16:26 | XRay Report ---
Chest radiograph, one view History: Shortness of breath Comparison: 05/07/2024 Findings: Single AP view of the chest performed. No focal consolidation or pleural effusion. No pneumothorax. The cardiomediastinal silhouette is within normal limits. Normal pulmonary vascularity. No evidence for lymphadenopathy. No visualized bony or soft tissue abnormality. Impression: Normal chest radiograph Electronically signed by Josh Mcgraw 10-08-2024 4:26 PM
[2024-10-08 17:06] LABS: Adenovirus PCR Not Detected (NotDetected); Bordetella parapertussis PCR Not Detected (NotDetected); Bordetella pertussis PCR Not Detected (NotDetected); Chlamydia pneumoniae PCR Not Detected (NotDetected); Coronavirus 229E PCR Not Detected (NotDetected); Coronavirus CoV-2 (COVID19)PCR Not Detected (NotDetected); Coronavirus HKU1 PCR Not Detected (NotDetected); Coronavirus NL63 PCR Not Detected (NotDetected); Coronavirus OC43PCR Not Detected (NotDetected); Human Metapneumovirus PCR Not Detected (NotDetected); Influenza A (H1 2009) PCR DETECTED (NotDetected); Influenza B PCR Not Detected (NotDetected); Mycoplasma pneumoniae PCR Not Detected (NotDetected); Parainfluenza Virus 1 PCR Not Detected (NotDetected); Parainfluenza Virus 2 PCR Not Detected (NotDetected); Parainfluenza Virus 3 PCR Not Detected (NotDetected); Parainfluenza Virus 4 PCR Not Detected (NotDetected); Respiratory Syncytial VirusPCR Not Detected (NotDetected); Rhinovirus/Enterovirus PCR Not Detected (NotDetected)
--- NOTE | 2024-10-08 17:10 | History & Physical Report ---
Date of Service October 08, 2024 Assessment & Plan (1) Anemia: (2) Hereditary spherocytosis: Plan: Acute on chronic anemia Patient is 54-year-old female with PMH Hereditary spherocytosis, chronic anemia, GERD, HTN, postherpetic neuralgia, chronic back pain, presented to ER after reported syncopal event today at work. Reported jerking type movements lasting less than minute and pt had reported hypotension. Upon arrival to ER patient afebrile, P: 77, R: 16, BP 88/51, 98% on room air. Negative troponin. H/H: 6.8/20. (Hgb: 10 on 05/11/24). T bili: 1.7 CT Head: no acute intracranial abnormality Suspect worsening anemia in setting of influenza and underlying hereditary spherocytosis In ER given 1L NSS with improvement of blood pressure to 106/61. In ER rectal exam with reported brown stool and was heme-negative Anemia labs pending In ER type and cross and 2 units PRBC ordered to be transfused. Repeat H&H after transfusion CBC, CMP in a.m. Consult hematology (3) Syncope: Plan: Suspect syncope secondary to underlying anemia, dehydration and likely orthostatic hypotension. Suspect this was syncopal episode and less likely seizure Seizure precautions Treatment for anemia as above If recurrent syncope or develops other seizure like activity consider further brain imaging, EEG and neurology consult (4) Influenza: Plan: +Influenza A on biofire respiratory panel CXR: no acute infiltrate Isolation precautions Start Tamiflu (5) HTN (hypertension): Plan: Hypotensive improved with IVF in ER Hold home lisinopril, HCTZ Monitor (6) Hypokalemia: Plan: K: 3.4. Magnesium: 2.0 Replace and monitor #Chronic back pain #H/O postherpetic neuralgia Continue home gabapentin, methocarbamol prn DVT Prophylaxis SCDs Admit PCU Full code as per discussion with pt Follows with Dr Pinto routine care Pt was seen and care coordinated with Dr Barrios. See addendum I spent a total of 65 minutes reviewing notes, outpatient records, labs, medication, coordinating, documenting and providing care for this patient excluding time spent in the performance of separately billed services and excluding time spent by another provider/QHP. History of Present Illness Chief Complaint: Syncope Primary Care Provider: Eugenio Flores MD Patient is 54-year-old female with PMH Hereditary spherocytosis, chronic anemia, GERD, HTN, postherpetic neuralgia, chronic back pain, presented to ER after reported syncopal event today. Patient reports past couple of days with congestion, cough, nausea, dizziness, weakness, and decreased appetite. Admits to decreased oral intake. 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 States feeling dizzy today. States that she had just ate chicken salad sandwich and was walked to talk to another adult when she had a syncopal episode. Coworker was able to catch patient and lowered her to the ground and she did not have a fall or head injury. States she had some noted jerking motion for approximately 30 seconds. Reports was evaluated at school nurse and had low BP and EMS called. No history of seizure. Reports other family members with similar cough symptoms just prior to patient's onset. States has been approximately 19 years since she required a blood transfusion and that was at the time of of child. She reports hemoglobin have been stable and she hasn't followed with hematology for years. States chronic intermittent abdominal cramping but denies any current abdominal pain. Reports has some back pain and has postherpetic neuralgia that has improved and has gabapentin to use as needed. Uses ibuprofen 200-400mg daily. Denies diaphoresis, V/D/C, vision changes, neck pain, CP, SOB, orthopnea, palpitations, hemoptysis, current abdominal pain, paresthesias, extremity edema, rashes, urinary symptoms. Denies loss control of bowel/bladder or tongue biting. Allergies Allergy/AdvReac Type Severity Reaction Status Date / Time Penicillins Allergy Unknown DOESN'T Verified 05/07/24 16:51 KNOW WHAT REACTION SHE HAD Home Medications Medication Instructions Recorded Confirmed Type ibuprofen 200 mg tablet 200 mg PO Q6H PRN Pain 07/04/21 10/08/24 History methocarbamol 500 mg tablet 500 mg PO DAILY PRN Muscle Spasm 07/04/21 10/08/24 History calcium carbonate 500 mg PO QPM 05/07/24 10/08/24 History cholecalciferol (vitamin D3) 25 1,000 mcg PO QPM 05/07/24 10/08/24 History mcg (1,000 unit) tablet gabapentin 400 mg capsule 400 mg PO DAILY PRN Pain 05/07/24 10/08/24 History multivitamin 1 tab PO QPM 05/07/24 10/08/24 History alendronate 70 mg tablet 70 mg PO WK 10/08/24 10/08/24 History hyoscyamine sulfate 0.125 mg tablet 0.125 mg PO Q4H PRN cramp/abd pain 10/08/24 10/08/24 History lisinopril 10 1 tab PO QAM 10/08/24 10/08/24 History mg-hydrochlorothiazide 12.5 mg tablet omeprazole 40 mg capsule,delayed 40 mg PO DAILY PRN Other 10/08/24 10/08/24 History release Past Med/Surg History Problem List (Updated 10/08/24 @ 18:33 by Gianfranco Fernandez MD) Influenza A (Acute) Seizure-like activity (Acute) Syncope (Acute) Anemia (Acute) Hypotension (Acute) Hypokalemia Syncope Influenza Anemia Acute chest pain (Acute) Cervical radiculopathy (Acute) Medical History HTN (hypertension) Hereditary spherocytosis Fibromyalgia Migraines Surgical History (Updated 10/08/24 @ 18:10 by Riya Jackson PA-C) History of colonoscopy History of cholecystectomy Family History (Updated 10/08/24 @ 18:10 by Riya Jackson PA-C) Other Breast cancer Hypertension Stroke Social History Smoking Status: Never smoker Hx Alcohol Use: No Hx Substance Use: No Preferred Language: [place]an Feels Safe at Home: Yes Review of Systems Review of Systems: All systems reviewed & are unremarkable except as noted in HPI & below Physical Exam Physical Exam: General: no distress, WDWN Head: normocephalic, atraumatic Eyes: PERRL, EOM's intact, conjunctiva non-injected, pale conjunctiva, anicteric ENT: normal inspection external ears, nose, mucous membranes dry Neck: supple, trachea midline Lungs: clear, no respiratory distress, no wheezing/rhonchi/rales CV: RRR, no murmur, no pretibial edema Abd: normal BS, soft, non-tender Ext: no cyanosis, no calf tenderness Neuro: A&O x 3, no focal deficits noted, normal affect Skin: +pale, warm, dry Results & Data Results & Data Vital Signs (Past 12 Hours) Vital Signs Temp Pulse Pulse Resp BP BP Pulse Ox 10/08/24 15:46 81 18 106/61 95 10/08/24 15:04 95 10/08/24 14:54 79 23 94 10/08/24 14:30 97/59 L 10/08/24 14:30 97/59 L 10/08/24 14:30 73 21 98 10/08/24 14:21 76 21 99 10/08/24 14:20 99/58 L 10/08/24 14:18 78 16 98 10/08/24 14:15 91/54 L 10/08/24 14:15 91/54 L 10/08/24 14:15 75 28 H 96 10/08/24 14:15 91/54 L 10/08/24 14:14 73 10/08/24 13:46 36.6 C 77 16 88/51 L 98 O2 Del Method 10/08/24 15:46 Room Air 10/08/24 15:04 Room Air 10/08/24 14:54 10/08/24 14:30 10/08/24 14:30 10/08/24 14:30 10/08/24 14:21 10/08/24 14:20 10/08/24 14:18 10/08/24 14:15 10/08/24 14:15 10/08/24 14:15 10/08/24 14:15 10/08/24 14:14 10/08/24 13:46 Room Air Laboratory Results Short CBC 10/08/24 Range/Units 14:05 WBC 3.35 L (4.8-10.8) K/ul Hgb 6.8 L* (12.0-16.0) g/dl Hct 20.2 L* (37.0-47.0) % Plt Count 138 (130-400) K/uL BMP 10/08/24 14:05 Sodium 136 Potassium 3.4 L Chloride 104 Carbon Dioxide 26 BUN 27 H Creatinine 0.96 Glucose 141 H Calcium 7.9 L Liver Function 10/08/24 Range/Units 14:05 Total Bilirubin 1.7 H (0.2-1.0) mg/dl AST 12 L (13-39) U/L ALT 10 (7-52) U/L Alkaline Phosphatase 31 L (34-104) U/L Albumin 4.1 (3.4-5.0) gm/dl Urine 10/08/24 Range/Units 16:55 Urine Color Yellow Urine Appearance Clear (Clear) Urine pH 5.5 (4.5-7.5) Ur Specific [place] 1.015 (1.000-1.030) Urine Protein Negative (Negative) Urine Glucose (UA) Negative (Negative) Diagnostic Findings Chest X-Ray 10/08/24 15:16 Chest radiograph, one view History: Shortness of breath Comparison: 05/07/2024 Findings: Single AP view of the chest performed. No focal consolidation or pleural effusion. No pneumothorax. The cardiomediastinal silhouette is within normal limits. Normal pulmonary vascularity. No evidence for lymphadenopathy. No visualized bony or soft tissue abnormality. Impression: Normal chest radiograph Electronically signed by Josh Mcgraw 10-08-2024 4:[address] 10/08/24 15:16 CT OF THE HEAD WITHOUT CONTRAST CLINICAL HISTORY: Syncope. Seizure. COMPARISON STUDY: Head CT August 18, 2012. CT DOSE: 547.75 mGy.cm TECHNIQUE: Helical axial images of the head were obtained without IV contrast. Automated exposure control was utilized for the study. A dose lowering technique was utilized adhering to the principles of ALARA. FINDINGS: No acute intracranial hemorrhage, midline shift or mass effect is present. The ventricular system is unremarkable. The basal cisterns are patent. No extra-axial collections are present. There are no findings to suggest acute dural sinus thrombosis or acute territorial infarct. No significant calvarial abnormalities are present. There is minimal sinus mucosal thickening. The adenoids are prominent. Several sebaceous cysts within the scalp are again noted. IMPRESSION: 1. No acute intracranial findings. 2. No calvarial fractures. ACT 112: Negative or not required by law. Electronically signed by: Kelton Rooney M.D. 10/08/2024 3:47 PM Supervising Physician Co-Signing Physician Notes 54-year-old lady with PMH of Gilbert's syndrome, Hereditary spherocytosis, somatocytosis, HTN, IBS, interstitial cystitis, fibromyalgia, DDD, migraine, panic disorder, somatization disorder presents today after syncopal episode. She has recent ongoing likely viral URTI [complaints of congestion, cough, weakness, decreased appetite]. She felt little better today and went to her work and after lunch, she had lightheadedness and brief syncopal episode, coworker was able to catch her/lower her down to ground. There was note of few seconds of seizure like activity for few seconds but patient's stated that he was not told about seizure-like activity when he was updated via phone by her workplace. This is likely post syncopal muscle twitching given very brief period in appropriate setting in a patient without known h/o seizure. At ED, FOBT was negative. Bicytopenia noted [WBC 3.35, hemoglobin 6.8]. Hypokalemia with potassium of 3.4. Iron level 28, total bilirubin 1.7 [better than her prior bilirubin level] troponin x 3 negative. Vitamin B12 and folate level pending. Influenza A +ve. UA neg for UTI. CXR and CT head with no acute findings. Acute on chronic anemia: In the setting of Hereditary spherocytosis, fobt at ED was neg. Iron low. tranfuse prbc. HnH goal of 7. Monitor HnH Q8H. will do vitamin b12 and folate supplement. will need iron supplement started once acute illness resolves. Bicytopenia: iso hereditary spherocytosis. Heme consult. pt to f/u w/ hematology on dc. Influenza A URTI: tamiflu Hypokalemia: replete KCL, labs in AM. On Exam: GENERAL: Alert and oriented x3. NAD, on RA. appears weak/sick. HEENT: + pallor, + icterus. Pupils equal, round and reactive to light. Oral mucosa moist. NECK: No JVD, no neck masses. HEART: S1 and S2 heard. Regular rate and rhythm. No murmur, no gallop. RESPIRATORY SYSTEM: Normal AP diameter. No accessory muscle use. No wheezing, no crackles. ABDOMEN: Soft, bowel sounds present, nontender, no distention. CENTRAL NERVOUS SYSTEM: No facial droop. Speech is clear. Obeys simple commands. Moves extremities. EXTREMITIES: No edema, no erythema seen. I have seen and examined the patient and have discussed the case with the provider above. I agree with the assessment and plan as stated. Time spent separately 30 min
[2024-10-08 17:38] LABS: Appearance Urine Clear (Clear); Bacteria Urine Automated None Seen (None Seen); Bilirubin Urine Negative (Negative); Blood Urine Negative (Negative); Color Urine Yellow; Glucose Urine UA Negative (Negative); Ketones Urine Negative (Negative); Leukocyte Esterase Urine Trace (Negative); Nitrite Urine Negative (Negative); Protein Urine Negative (Negative); RBC Urine Automated 0-2 /hpf (0-2); Specific Gravity Urine 1.015 (1.000-1.030); Urobilinogen Urine Negative (Negative); WBC Urine Automated 0-5 /hpf (0-5); pH Urine 5.5 (4.5-7.5)
[2024-10-08] MEDS: OSELTAMIVIR PHOSPHATE 75 MG CAP PO STA (17:56)
[2024-10-08] MEDS: SODIUM CHLORIDE 0.9% 500 ML IV ONE (17:56)
[2024-10-08 18:02] LABS: Iron 28 mcg/dl (35-150); Transferrin 158 mg/dl (200-360); Unsaturated Iron Binding Cap 180 mcg/dl (155-355)
[2024-10-08] MEDS: POTASSIUM CHLORIDE CRTAB 20 MEQ TABCR PO ONE (18:38)
[2024-10-08 18:46] LABS: Lactate Dehydrogenase 131 U/L (86-244)
[2024-10-08 19:02] LABS: Thyroid Stimulating Hormone 1.241 uIu/ml (0.300-4.500)
[2024-10-08 19:06] LABS: Ferritin 576.8 ng/ml (8-388)
[2024-10-08 19:33] LABS: Folate (Folic Acid),Ser orPlas 20.81 ng/ml (>5.38)
[2024-10-08] MEDS ORDERED: GABAPENTIN 400 MG CAP PO PRN (19:59)
[2024-10-08] MEDS ORDERED: METHOCARBAMOL 500 MG TABLET PO PRN (19:59)
[2024-10-08] MEDS: FLUTICASONE PROPIONATE NA SPR 16 GM BTL SCH (20:41)
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
--- OUTSIDE RECORDS SUMMARY | 2024-10-08 20:59 | External Medical Summary | Summary of Care ---
Author Name Unknown Organization [facility] Address [address] [facility] [place] [address] Phone [phone] Care Team Providers Care Resaw Operator Name Role Phone Eugenio Flores MD Primary Care Provider [phone] Reason for Referral * Evaluate & Treat - Unlimited Visits (Within 10 days (routine)) - Authorized Specialty Diagnoses / Procedures Referred By Contac t Referred To Contact General Surgery Diagnoses Epidermoid cyst of skin of scalp Eugenio Flores MD [address] [address] Phone: tel: fax: Referral ID Status Reason Start Date Expiration Date Visits Requested Visits Authorized [id number] Authorized Specialty Services Required 09/29/2024 999 999 Question Answer Referral Priority Within 10 days (routine) Where should this appointment be scheduled? [facility] What condition is the patient being seen for? General Surgery Conditions What condition is the patient being seen for? Skin Lesions (SubQ Nodules) Reason for Visit * Reason Comments Acute Patient is here due to a cyst on the back of her head. Reports that it's been getting bigger and more painful recently. Has not noticed any drainage. Encounter Details Date Type Department Care Team (Late st Contact Info) Description 09/29/2024 4:40 PM EST Office Visit [facility] Mars[place] Mistry [address] [place] [phone] Eugenio Flores MD [address] [address] Epidermoid cyst of skin of scalp*; Age-related osteoporosis without current pathological fracture; HTN, goal below 140/90 Allergies Active Allergy Reactions Criticality Noted Date Comments Penicillins Rash Medium 02/21/1999 When young; not sure of details documented as of this encounter (statuses as of 09/30/2024) Medications loratadine (CLARITIN) 10 MG TabletIndications: Dermatitis [...] Active Alendronate Sodium 70 MG Oral Tablet (Fosamax)Yvestio ns:Age-related osteoporosis without current pathological fracture Take 1 Tablet by mouth once a week. with 8 oz. water 30 minutes before first meal of the day. Remain upright for 30 min after taking tablet. 15 Tablet 3 09/29/19 25 Active Nitrofurantoin Monohyd Macro 100 MG Oral Capsule (Macrobid)Indicati ons:Acute cystitis without hematuria Take 1 Capsule by mouth in the morning and 1 Capsule before bedtime. Do all this for 7 days. With food until gone. 14 Capsule 07/24/20 24 025 Discontin ued(Medic ation List Clean Up) Alendronate Sodium 70 MG Oral Tablet (Fosamax)Indicatio ns:Age-related osteoporosis without current pathological fracture Take 1 Tablet by mouth once a week. with 8 oz. water 30 minutes before first meal of the day. Remain upright for 30 min after taking tablet. 15 Tablet 3 09/14/19 25 025 Discontin ued(Refil l) documented as of this encounter (statuses as of 09/30/2024) Active Problems Problem Noted Date Diagnosed Date HTN, goal below 140/90 09/29/2024 Age-related osteoporosis wit hout current pathological fracture 09/29/2024 DDD (degenerative disc disease), thoracic 2023 Costochondritis [...] as of this encounter (statuses as of 09/30/2024) Resolved Problems Problem Noted Date Diagnosed Date [...] as of this encounter (statuses as of 09/30/2024) Immunizations Name Administration Dates Next Due COVID-19 [...] No 08/06/2024 Does the household have a re gular source of income? (Household - for ages [...] Sign Reading Time Taken Comments Blood Pressure 121/63 09/29/2024 4:39 PM EST Pulse 70 09/29/2024 4:39 PM EST Temperature 35.9 C (96.6 F) 09/29/2024 4:39 PM ES T Respiratory Rate 16 09/29/2024 4:39 PM EST Oxygen Saturation 98% 09/29/2024 4:39 PM EST Inhaled Oxygen Concentration - - Weight 75.4 kg (166 lb 3.2 oz) 09/29/2024 4:39 P M EST Height 165.1 cm (5' 5") 09/29/2024 4:39 PM EST Body Mass Index 27.66 09/29/2024 4:39 PM EST documented in this encounter Progress Notes * Eugenio Flores MD - 09/29/2024 4:50 PM EST Images from the original note were not included. Subjective Beatris Momin is a 54 year old female that presents for Acute (Patient is here due to a cyst on the back of her head. Reports that it's been getting bigger and more painful recently. Has not noticed any drainage. ) History of Present Illness Beatris Momin is a 54 year old female who presents with a painful cyst. She has a painful cyst of the scalp that has been present for a couple of weeks. The cyst is described as 'thicker' and painful to touch, with no drainage. She is concerned about the cyst due to her sister's history of cancer. No other similar cysts are present on her body. Her wrist pain is improving with the use of a cream applied four times a day, but she now experiences pain extending to her shoulder, particularly in the evenings. She uses heat or ice for relief andcontinues to apply the cream to her shoulder. She is currently on lisinopril and hydrochlorothiazide for blood pressure management, which is well-controlled. She takes alendronate weekly for osteoporosis and requires a refill. She feels tired, which she attributes to her anemia and possibly the time of year, as it is dark and cold. She takes omeprazole once in the morning before a full meal to manage stomach issues, which she believes are related to chest pain. Objective Vitals: 09/29/24 1639 Temp: 96.6 F (35.9 C) Pulse: 70 Resp: 16 SpO2: 98% BP: 121/63 BMI: 27.66 Physical Exam VITALS: Blood pressure excellent SKIN: Non-infected epidermoid cyst present. I have reviewed the following results: Results Assessment and Plan Assessment & Plan Epidermoid Cyst Painful, non-draining cyst on the scalp, likely epidermoid in nature. No signs of infection. Familyhistory of cancer noted, but epidermoid cysts are typically benign. -Refer to surgery for removal and histopathological examination to rule out malignancy. Wrist Pain Improvement noted with topical cream application, but pain now extending to the shoulder. -Continue topical cream application to both wrist and shoulder. -Consider referral to physical therapy or chiropractor if no improvement. Hypertension Well-controlled on Lisinopril and Hydrochlorothiazide. -Continue current medications. Osteoporosis Last dose of Alendronate taken, refill needed. -Refill Alendronate prescription, to be picked up at [facility]. Anemia Possible contribution to fatigue. -Monitor symptoms, consider further evaluation if no improvement with change in season. Gastroesophageal Reflux Disease (GERD) On Omeprazole for chest pain thought to be related to GERD. -Continue Omeprazole as prescribed. Epidermoid cyst of skin of scalp (Primary) - SURGERY REFERRAL OP Age-related osteoporosis without current pathological fracture - Alendronate Sodium 70 MG Oral Tablet (Fosamax); Take 1 Tablet by mouth once a week. with 8 oz. water 30 minutes before first meal of the day. Remain upright for 30 min after taking tablet. HTN, goal below 140/90 Wrap-Up Follow Up: Return if symptoms worsen or fail to improve. Text in this note was generated using an ambient documentation service. I discussed the use of a device to record and summarize our discussion today. All persons present during the encounter consented to its use. documented in this encounter Nursing Notes * Kristin Raya, MED ASSIST - 09/29/2024 4:45 PM EST The patient has been properly identified by confirmation of name and date of . Chief Complaint Patient presents with Acute Patient is here due to a cyst on the back of her head. Reports that it's been getting bigger and more painful recently. Has not noticed any drainage. documented in this encounter Plan of Treatment Upcoming Encounters Date Type Department Care Team (Late st Contact Info) Description 10/08/2024 3:00 PM EST Office Visit General Surgery, [facility] [address] [place] [address] Rose Parker PA-C [address] [place] [address] 11/02/2024 12:30 PM EDT Imaging Radiology [facility] [address] [place] [phone] 03/05/2025 2:20 PM EDT Office Visit [facility] [address] [phone] DecemberEugenio MD [address] [address] Scheduled Procedures Name Priority Associated Diagnoses Date/Ti me COLONOSCOPY FLEXIBLE PROXIMAL DIAGNOSTIC Recall Screen for colon cancer Scheduled Referrals Name Type Priority Associated Diagnoses Orde r Schedule SURGERY REFERRAL OP Referral Within 10 da ys (routine) Epidermoid cyst of skin of scalp Ordered: 09/29/2024 Health Maintenance Due Date Last Done Comments Albumin/Creatinine Ratio 1986 VITAMIN D LEVEL ONCE IN A LIFETIME-USE SMARTSET# 18974 2008 Cologuard 2013 Fecal Occult Blood Test 2013 Sigmoidoscopy 2013 Pneumococcal Vaccine: 50+ Years (1 of 1 - PCV) 2018 COVID-19 Vaccine ( season) 2024 04/26/2021, 03/26/2021, 12/15/2020, Additional history exists DXA Scan 12/05/2024 12/05/2022 Colonoscopy 03/15/2025 03/15/2020, 02/24, 12/05/2018, Additional history exists Colorectal Cancer Screening 03/15/2025 GFR 05/11/2025 05/11/2024, 03/26, 10/12/2022, Additional history exists Mammogram 06/02/2025 06/02/2024, 08/0 10/2022, 12/19/2021, Additional history exists Depression Screening 08/20/2025 [...] as of this encounter Visit Diagnoses Diagnosis Epidermoid cyst of skin of scalp- Primary Age-related osteoporosis without current pathological fracture Senile osteoporosis HTN, goal below 140/90 Unspecified essential hypertension documented in this encounter Care Teams Resaw Operator Relationship Specialty Start Date End Date Eugenio Flores MD PCP - General Family Medicine 02/25/23 documented as of this encounter
--- OUTSIDE RECORDS SUMMARY | 2024-10-08 20:59 | External Medical Summary | Summary of Care ---
Author Name Unknown Organization [facility] Address [address] [facility] [place] [address] Phone [phone] Care Team Providers Care Putter In Name Role Phone Eugenio Flores MD Primary Care Provider [phone] Encounter Details Date Type Department Care Team (Late st Contact Info) Description 09/14/[address] [facility] [place] [address] [place] [phone] Radha Leung MD [address] [facility] [place] [address] Allergies Active Allergy Reactions Criticality Noted Date [...] morning. 90 Tablet 1 08/20/20 24 Active Alendronate Sodium 70 MG Oral Tablet (Fosamax)Indicatio ns:Age-related osteoporosis without current pathological fracture Take 1 Tablet by mouth once a week. with 8 oz. water 30 minutes before first meal of the day. Remain upright for 30 min after taking tablet. 15 Tablet 3 05/14/20 24 025 Discontin ued(Refil l) documented as of [...] PM EST documented as of this encounter Plan of Treatment Upcoming Encounters Date Type Department Care Team (Late st Contact Info) Description 11/02/2024 12:30 PM EDT Imaging Radiology [facility] [address] [place] [phone] 03/05/2025 2:20 PM EDT Office Visit [facility], Rhamejared [address] [phone] December, Eugenio Zamora MD [address] [address] Scheduled Procedures Name Priority Associated Diagnoses Date/Ti [...] Colorectal Cancer Screening 03/15/2025 Mammogram 06/02/2025 06/02/2024, 08/0 10/2022, 12/19/2021, Additional [...] Not on filedocumented as of this encounter Care Teams Putter In Relationship Specialty Start Date End Date December, Eugenio Zamora MD PCP - General Family Medicine 02/25/23 documented as of this encounter
--- OUTSIDE RECORDS SUMMARY | 2024-10-08 21:00 | External Medical Summary ---
Author Name Unknown Address Unknown Organization : Laboratory Report Ordering Provider Test Date Status [facility] 07/24/2024 12:40:00 Final Observation Date Value Abnormality Reference (Units ) Status Color of Urine by Auto 07/24/2024 12:40:00 [place] Abnormal Light Yellow, Yellow Final Clarity, Urine 07/24/2024 12:40:00 Turb[place] Abnormal Clear Final Glucose [Mass/volume] in Urine by Automated test strip 07/24/2024 12:40:00 Negative Negative (mg/dL) Final Bilirubin.total [Presence] in Urine by Automated test strip 07/24/2024 12:40:00 Small Abnormal Negative Final Ketones [Mass/volume] in Urine by Automated test strip 07/24/2024 12:40:00 Negative Negative (mg/dL) Final Specific gravity, Urine 07/24/2024 12:40:00 1.025 1.003-1.030 Final Hemoglobin [Presence] in Urine by Automated test strip 07/24/2024 12:40:00 Negative Negative Final pH, Urine 07/24/2024 12:40:00 6.0 5.0, 5.5, 6.0, 6.5, 7.0, 7.5 (units) Final Protein [Mass/volume] in Urine by Automated test strip 07/24/2024 12:40:00 30 Abnormal Negative (mg/dL) Final Urobilinogen, Urine 07/24/2024 12:40:00 2.0 Abnormal 0.2, 1.0 (mg/dL) Final Nitrite [Presence] in Urine by Automated test strip 07/24/2024 12:40:00 Negative Negative Final Leukocyte esterase [Presence] in Urine by Automated test strip 07/24/2024 12:40:00 Small Abnormal Negative Final Performing Location
--- OUTSIDE RECORDS SUMMARY | 2024-10-08 21:00 | External Medical Summary | Summary of Care ---
Author Name Unknown Organization [facility] Address [address] [place] [address] Phone [phone] Care Team Providers Care Lead Oracle Developer Name Role Phone Eugenio Flores MD Primary Care Provider Reason for Referral * Precert (Diagnostic Medical) (Within 10 days (routine)) - Pending Review Specialty Diagnoses / Procedures Referred By Contac t Referred To Contact Cardiac Studies Diagnoses Chest pain Procedures ECHO, STRESS (DOBUTAMINE) W/ PHYSICIAN Jose Juan Dodge MD [address] [place] [address] Phone: tel: fax: Referral ID Status Reason Start Date Expiration Date Visits Requested Visits Authorized [id number] Pending Review Precert 09/06/[id number] Encounter Details Date Type Department Care Team (Late st Contact Info) Description 08/06/2024 Orders Only Cardiology [facility] [address] [place] [address] Jose Juan Dodge MD [address] [place] [address] Chest pain* Allergies Active Allergy Reactions Criticality Noted Date Comments Penicillins Rash Medium 02/21/1999 When young; not sure of details documented as of this encounter (statuses as of 08/06/2024) Medications loratadine (CLARITIN) 10 MG TabletIndications: Dermatitis Take 1 Tab by mouth daily. 30 Tab 5 6 Active Acetaminophen 325 MG Oral Tablet Take 1 Tablet by mouth. Active albuterol HFA (PROAIR HFA) 108 (90 BASE) MCG/ACT inhalerIndications :Shortness of breath Inhale 2 Puffs by mouth every 4 hours as needed for Wheezing. 1 Inhaler 1 9 Active Fluticasone Propionate 50 MCG/ACT Nasal SuspensionIndicati ons:Acute frontal sinusitis, recurrence not specified Administer 2 Sprays into each nostril 2 times a day. 16 g 5 0 Active Ibuprofen 600 MG Oral Tablet (Motrin)Indication s:Acute bilateral low back pain without sciatica Take 1 Tab by mouth every 8 hours as needed (pain). 30 Tab 1 1 Active Vitamin B-12 1000 MCG Sublingual Tablet SublingualIndicati ons:Stomatocytosis (HCC) Place 1 Tablet under the tongue in the morning. 90 Tablet 3 3 Active traMADol HCl 50 MG Oral Tablet (Ultram)Indication s:Compression fracture of thoracic vertebra with routine healing, unspecified thoracic vertebral level, subsequent encounter Take 1 Tablet by mouth every 6 hours as needed (breakthrough pain). 5 Tablet 3 Active Naproxen Sodium 220 MG Oral Capsule Take 1 Capsule by mouth daily as needed for Pain, Moderate. Active Triamcinolone Acetonide 0.1 % External Cream (Aristocort)Indica tions:Neoplasm of uncertain behavior of skin Apply topically to affected area 2 times a day. To affected area. 80 g 5 3 Active Ondansetron 4 MG Oral Tablet Disintegrating (Zofran)Indication s:Nausea without vomiting Place 1 Tablet on tongue every 8 hours as needed for Nausea. dissolve on tongue. 20 Tablet 1 3 Active Hyoscyamine Sulfate 0.125 MG Oral Tablet (Levsin)Indication s:Pain of upper abdomen Take 1 Tablet by mouth every 4 hours as needed for Cramping. for abdominal pain 40 Tablet 2 3 Active Polyethylene Glycol 3350 17 GM/SCOOP Oral Powder (Miralax)Indicatio ns:Other constipation Mix 1/2 bottle into each of 2 gatorade 32 oz bottles. Drink over a period of 3 hours. 255 g 3 Active Promethazine-DM 6.25-15 MG/5ML Oral Syrup Take 5 mL by mouth 4 times a day as needed for Cough. 120 mL 4 Active Gabapentin 400 MG Oral Capsule (Neurontin) Take 1 Capsule by mouth in the morning and 1 Capsule at noon and 1 Capsule before bedtime. 270 Capsule 1 4 Active Methocarbamol 500 MG Oral Tablet (Robamol) Take 1 Tablet by mouth in the morning and 1 Tablet at noon and 1 Tablet before bedtime. 270 Tablet 1 4 Active Alendronate Sodium 70 MG Oral Tablet (Fosamax)Indicatio ns:Age-related osteoporosis without current pathological fracture Take 1 Tablet by mouth once a week. with 8 oz. water 30 minutes before first meal of the day. Remain upright for 30 min after taking tablet. 15 Tablet 3 4 Active Etodolac 200 MG Oral Capsule (Lodine)Indication s:Atypical chest pain Take 1 Capsule by mouth in the morning and 1 Capsule at noon and 1 Capsule before bedtime. with food for pain. 30 Capsule 4 Active documented as of this encounter (statuses as of 08/06/2024) Active Problems Problem Noted Date Diagnosed Date [...] as of this encounter (statuses as of 08/06/2024) Resolved Problems Problem Noted Date Diagnosed Date [...] as of this encounter (statuses as of 08/06/2024) Immunizations Name Administration Dates Next Due COVID-19 mRNA, LNP-s, No Pre serve, 2-Dose Series (Moderna) 04/26/2021,03/26/2021,12/15/2020, 021 PPD 08/22/2022,08/11/2014 Seasonal Influenza Vac., MDV , IM, 0.5 mL (Fluzone) 07/07/2014,05/11/2013,06/19/2012, 011,07/01/2006 Seasonal Influenza, PF, 6 M & above, IM , (FluLaval or Fluzone) 07/01/2023,08/22/2022,07/17/2020, 019,06/05/2018,08/05/2017 Seasonal Influenza, Quadriva lent, No Preserve, IM 06/19/2016,08/05/2015 TDAP (age 10 and older)(Boostrix) 02/25/2024,07/2014 documented as of this encounter Social History Tobacco Use Types Packs/Day Years Used Date Smoking Tobacco: Never Passive Smoke Exposure: Never Smokeless Tobacco: Never Alcohol Use Standard Drinks/Week Comments No 0 (1 standard drink = 0.6 oz pur e alcohol) PHQ-2 Answer Date Recorded PHQ Adult Total Score 0 08/24/2022 Hunger Vital Sign Answer Date Recorded Within [...] Information Value Date Recorded Sex Assigned at Not on file Legal Sex Female 5:07 AM EST Gender Identity Not on file Sexual Orientation Not on file documented as of this encounter Progress Notes * Ruma Lopez TECH - 08/06/2024 3:24 PM EST CAD Imaging Referral Note Beatris Momin is a 54 year old female who was referred by Dr. Mikel Calles for evaluation of chestpain. Reviewing Compound Filler: Dr. Jose Juan Dodge Orders placed: Dobutamine Stress Echo (sub-optimal workload and HR noted on prior Exercise Echo in 2010) Test location: [facility] Referral priority: 1 month or less From Dr. Calles's Progress Note on 08/06/2024: HPI: 54-year-old seen today because of an episode of chest pain that occurred last evening. I saw her weeks ago with urinary symptoms. She notes the those symptoms are much improved. Of note is that her urine culture was negative. She did do 7 day course of Macrobid. Last evening she developed a chest discomfort which she describes as sharp in was right over the sternum. It did not seem to be associated with any increased activity nor does she think it was related to Um eating. She did not have anything spicy or out of the ordinary for dinner last evening. The pain lasted for about 30 minutes and then resolved. She has had similar pain previously. In April of 2024 she was seen in the Emergency Room with somewhat similar chest discomfort. Evaluation was unrevealing and she was released. She does note that this chest pain usually comes on without any associated activity but on occasion she has noted if she exerts herself, that seems to bring on the pain. ASSESSMENT/PLAN: Need for prophylactic vaccination and inoculation against influenza (Primary) - INFLUENZA VAC, TRIVALENT, (IIV3), PF, 0.5 ML (FLUZONE) Urinary frequency - URINALYSIS, POINT OF CARE (ENTER/EDIT) Chest pain-I suspect this is musculoskeletal/chest wall in etiology but the fact that she has appreciated similar chest pain seemingly related to exertion, I think we should do stress testing. I haveordered a stress echo but with option of Cardiology to change that type of stress test. - EKG If her stress test shows no inducible ischemia, I would recommend in the future when she gets a chest pain she use 2 or 3 Advil. Other orders - URINALYSIS, POINT OF CARE Patient Active Problem List Diagnosis Panic disorder [...] Nausea. dissolve on tongue. 20 Tablet 1 Hyoscyamine Sulfate 0.125 MG Oral Tablet (Levsin) Take 1 Tablet by mouth every 4 hours as needed for Cramping. for abdominal pain 40 Tablet 2 Polyethylene Glycol 3350 17 GM/SCOOP Oral Powder (Miralax) Mix 1/2 bottle into each of 2 gatorade 32 oz bottles. Drink over a period of 3 hours. 255 g 0 Promethazine-DM 6.25-15 MG/5ML Oral Syrup Take 5 mL by mouth 4 times a day as needed for Cough. 120mL 0 Gabapentin 400 MG Oral Capsule (Neurontin) Take 1 Capsule by mouth in the morning and 1 Capsule at noon and 1 Capsule before bedtime. 270 Capsule 1 Methocarbamol 500 MG Oral Tablet (Robamol) Take 1 Tablet by mouth in the morning and 1 Tablet at noon and 1 Tablet before bedtime. 270 Tablet 1 Alendronate Sodium 70 MG Oral Tablet (Fosamax) Take 1 Tablet by mouth once a week. with 8 oz. water30 minutes before first meal of the day. Remain upright for 30 min after taking tablet. 15 Tablet 3 Etodolac 200 MG Oral Capsule (Lodine) Take 1 Capsule by mouth in the morning and 1 Capsule at noon and 1 Capsule before bedtime. with food for pain. 30 Capsule 0 No current facility-administered medications for this visit. The 10-year ASCVD risk score (Griselda DK, et al., 2019) is: 1.8% Values used to calculate the score: Age: 54 years Sex: Female Is Non- : No Diabetic: No Tobacco smoker: No Systolic Blood Pressure: 142 mmHg Is BP treated: No HDL Cholesterol: 40 MG/DL Total Cholesterol: 98 MG/DL Cardiac Studies: EKG 08/06/2024 CONCLUSIONS: Normal sinus rhythm Normal ECG When compared with ECG of 04-Mar-2024 11:40, No significant change was found Ventricular Rate: 64 Atrial Rate: 64 [place] Interval: 150 QRS Duration: 100 QT/QTc: 416/429 ms P-R-T [place]: 34 : 7 : 33 degrees Echocardiogram 11/12/2013 Interpretation Summary The examination is adequate to evaluate the referral indication. The left ventricular wall motion is normal. The qualitative LV ejection fraction is 55-59% (normal). The aortic valve has three leaflets. Mild aortic valve sclerosis is present. Aortic stenosis is absent. There is no significant aortic regurgitation. There is no evidence of pulmonary hypertension Exercise Stress Echo 11/24/2010 INTERPRETATION SUMMARY Suboptimal stress test due to inadequate maximum heart rate. Low workload achieved. Normal resting wall motion and no stress-induced wall motion abnormality. The study was technicallyadequate. There is no comparison study available. The left ventricular systolic function is normal. Qualitative LV ejection Fraction = 65-70%. There is trace aortic insufficiency. There is trace mitral regurgitation. There is trace tricuspid regurgitation. STRESS FINDINGS Stress ECG: No significant ST changes. Baseline ECG was normal. Sinus rhythm was noted at rest. Exercise capacity ismarkedly below average. Heart rate response to stress was normal. Dyspnea 'without wheezing' was induced with stress. Lightheadedness occurred with stress. Blood pressure response to exercise was normal. Ruma Lopez MS, [facility] [address] Abstractor, Cardiology Imaging Program documented in this encounter Plan of Treatment Upcoming Encounters Date Type Department Care Team (Late st Contact Info) Description 11/02/2024 4:00 PM EDT Imaging Radiology [facility] [address] [place] [address] 03/05/2025 2:20 PM EDT Office Visit [facility] [place] [address] [place] [phone] December, Eugenio Zamora MD [address] [facility] [place] [address] Scheduled Orders Name Type Priority Associated Diagnoses Orde r Schedule ECHO, STRESS (DOBUTAMINE) W/ PHYSICIAN Echocardiology Routine Chest pain Expected: 09/06/2024, Expires: 08/06/2025 Scheduled Procedures Name Priority Associated Diagnoses Date/Ti me COLONOSCOPY FLEXIBLE PROXIMAL DIAGNOSTIC Recall Screen for colon cancer Health Maintenance Due Date Last Done Comments Cologuard 2013 Fecal Occult Blood Test 2013 Sigmoidoscopy 2013 PAP SMEAR-ANNUAL AGES 18-100 01/02/2023 01/02/2022, 08/22/2017, 08/22/2017, Additional history exists Depression Screening 08/24/2023 08/24/2022 COVID-19 Vaccine ( season) 2024 04/26/2021, 03/26/2021, 12/15/2020, Additional history exists Influenza Vaccine (FLU shot) (#1) 2024 07/01/2023, 08/22/2022, 07/17/2020, Additional history exists Colonoscopy 03/15/2025 03/15/2020, 02/24, 12/05/2018, Additional history exists Colorectal Cancer Screening 03/15/2025 Mammogram 06/02/2025 06/02/2024, 08/0 10/2022, 12/19/2021, Additional history exists Diabetes Screening 05/11/2027 05/11/2024, 0 04/12/2023, 10/12/2022, Additional history exists Lipid Panel 10/12/2027 10/12/2022, 09/27, 09/09/2010 DTap/Tdap Vaccines (3 - Td or Tdap) 02/24/2034 02/25/2024, 01/04/2014 RETIRED - COLONOSCOPY-ANNUAL AGES 18-100 Discontinued 03/15/2020, 03/15/2020, 12/05/2018, Additional history exists RETIRED - COLONOSCOPY-EVERY 5 YRS AGES 18-100 Discontinued 03/15/2020, 03/15/2020, 12/05/2018, Additional history exists Zoster Vaccines Completed 04/25/2024, 01/31/2024 HPV (Gardasil) Vaccine Aged Out No lo nger eligible based on patient's age to complete this topic Hepatitis B Vaccine Discontinued MENINGOCOCCAL (MENACTRA/MENVEO) Aged Out No longer eligible based on patient's age to complete this topic Pneumococcal Vaccine: Pediatrics (0 to 5 Years) and At-Risk Patients (6 to 64 Years) Aged Out No longer eligible based on patient's age to complete this topic documented as of this encounter Medical Devices Not on filedocumented as of this encounter Visit Diagnoses Diagnosis Chest pain- Primary Chest pain, unspecified documented in this encounter Care Teams Lead Oracle Developer Relationship Specialty Start Date End Date December, Eugenio Zamora MD [address] [place] [address] PCP - General Family Medicine 02/25/23 documented as of this encounter
--- OUTSIDE RECORDS SUMMARY | 2024-10-08 21:00 | External Medical Summary | Summary of Care ---
Author Name Unknown Organization [facility] Address [address] [facility] [place] [address] Phone [phone] Care Team Providers Care Store Administrator Name Role Phone Eugenio Flores MD Primary Care Provider [phone] Reason for Visit * Reason Onset Date Comments PAP Pt here today fo r her pap Medication Administration 08/20/2024 Flu an d/or Pneumo Inj Encounter Details Date Type Department Care Team (Late st Contact Info) Description 08/20/2024 6:00 PM EST Office Visit [facility] [address] [facility] [place] [address] Autumn Ruff MD [address] [facility] [place] [address] Pap smear for cervical cancer screening*; Need for prophylactic vaccination and inoculation against influenza; HTN, goal below 140/90; Pain of upper abdomen Allergies Active Allergy Reactions Criticality Noted Date Comments Penicillins Rash Medium 02/21/1999 When young; not sure of details documented as of this encounter (statuses as of 08/20/2024) Medications loratadine (CLARITIN) 10 MG TabletIndications: Dermatitis [...] bedtime. 270 Tablet 1 02/25/20 24 Active Alendronate Sodium 70 MG Oral Tablet (Fosamax)Indicatio ns:Age-related osteoporosis without current pathological fracture Take 1 Tablet by mouth once a week. with 8 oz. water 30 minutes before first meal of the day. Remain upright for 30 min after taking tablet. 15 Tablet 3 05/14/20 24 Active Etodolac 200 MG Oral Capsule (Lodine)Indication s:Atypical chest pain Take 1 Capsule by mouth in the morning and 1 Capsule at noon and 1 Capsule before bedtime. with food for pain. 30 Capsule 05/13/20 24 Active Additional Information Patient not taking.Reported on 08/20/2024 Gabapentin 400 MG Oral Capsule (Neurontin) Take [...] morning. 90 Tablet 1 08/20/20 24 Active Hyoscyamine Sulfate 0.125 MG Oral Tablet (Levsin)Indication s:Pain of upper abdomen Take 1 Tablet by mouth every 4 hours as needed for Cramping. for abdominal pain 40 Tablet 2 04/18/20 23 024 Discontin ued(Refil l) Gabapentin 400 MG Oral Capsule (Neurontin) Take 1 Capsule by mouth in the morning and 1 Capsule at noon and 1 Capsule before bedtime. 270 Capsule 1 02/25/20 24 024 Discontin ued(Refil l) documented as of this encounter (statuses as of 08/20/2024) Active Problems Problem Noted Date Diagnosed Date [...] as of this encounter (statuses as of 08/20/2024) Resolved Problems Problem Noted Date Diagnosed Date [...] as of this encounter (statuses as of 08/20/2024) Immunizations Name Administration Dates Next Due COVID-19 [...] Sign Reading Time Taken Comments Blood Pressure 151/89 08/20/2024 6:23 PM EST Pulse 89 08/20/2024 6:23 PM EST Temperature 36.4 C (97.5 F) 08/20/2024 6:23 PM ES T Respiratory Rate 18 08/20/2024 6:23 PM EST Oxygen Saturation 97% 08/20/2024 6:23 PM EST Inhaled Oxygen Concentration - - Weight 75.1 kg (165 lb 8 oz) 08/20/2024 6:23 PM EST Height - - Body Mass Index 27.54 08/06/2024 10:49 AM EST documented in this encounter Patient Instructions * Patient Instructions* Brandi Myers LPN - 08/20/2024 6:23 PM EST ~~PATIENT INSTRUCTIONS FOR PNEUMOCOCCAL VACCINE~~ Possible side effects of pneumococcal vaccine, (pneumonia shot), are usually mild and can include: 1. Soreness or redness at injection site 2. Low grade fever 3. Body aches You may use Tylenol/Acetaminophen as needed for these symptoms. LET YOUR DOCTOR KNOW IMMEDIATELY IF YOU HAVE DIFFICULTY BREATHING OR SWALLOWING, EXPERIENCE ITCHINGOF FEET OR HANDS, HAVE SWELLING OF EYES, FACE OR INSIDE OF NOSE. ~~PATIENT INSTRUCTIONS FOR FLU SHOT~~ Possible side effects of influenza vaccine, (flu shot), are usually mild and include: 1. Soreness or redness at injection site 2. Low grade fever 3. Body aches You may use Tylenol/Acetaminophen as needed for these symptoms. LET YOUR DOCTOR KNOW IMMEDIATELY IF YOU HAVE DIFFICULTY BREATHING OR SWALLOWING, EXPERIENCE ITCHINGOF FEET OR HANDS, HAVE SWELLING OF EYES, FACE OR INSIDE OF NOSE. documented in this encounter Progress Notes * Autumn Ruff MD - 08/20/2024 6:47 PM EST Images from the original note were not included. Subjective Beatris Momin is a 54 year old female. Chief Complaint Patient presents with PAP Pt here today for her pap Medication Administration Flu and/or Pneumo Inj HPI: Here for PAP Last one in 2021 Sister had cervical ca No concern but has some urinary sx change , urgency Refilled meds Flu vaccine today And BP has been running high And scheduled for stress test early aug Will start BP med Advised patient to keep healthy life style, regular exercise with good diet, chris. low sodium diet. And also check BP at home too. Denies associated chest discomfort, chest heaviness, chest pressure, chest tightness, edema, palpitations and shortness of breath. PMH: Patient Active Problem List Diagnosis Panic disorder [...] min after taking tablet. 15 Tablet 3 Gabapentin 400 MG Oral Capsule (Neurontin) Take [...] mouth in the morning. 90 Tablet 1 Etodolac 200 MG Oral Capsule (Lodine) Take 1 Capsule by mouth in the morning and 1 Capsule at noon and 1 Capsule before bedtime. with food for pain. (Patient not taking: Reported on 08/20/2024) 30 Capsule 0 No current facility-administered medications for this visit. Past Medical History: Diagnosis Date Constipation Convulsions (HCC) Gilbert syndrome Hereditary spherocytosis (HCC) Migraines w/o aura Myalgia and myositis Panic disorder Skin sensation disturbance Somatization disorder Vertigo Past Surgical History: Procedure Laterality Date BREAST LESION,OTHER,EXCISION 11/14/2009 Right breast biopsy (benign) [place] [facility] [place]. Holm COLONOSCOPY, DIAGNOSTIC (RECTUM) 12/05/2018 poor prep/internal hemorrhoids/biopsies show hyperplastic polyps/recall 1-2 years with 2 day prep/COLONOSCOPY FLEXIBLE PROXIMAL DIAGNOSTIC performed by Remedios Leonardo MD at [facility] COLONOSCOPY, DIAGNOSTIC (RECTUM) 03/15/2020 normal, repeat 5 yrs / COLONOSCOPY FLEXIBLE PROXIMAL DIAGNOSTIC performed by Remedios Leonardo MD at [facility] COLONOSCOPY, GI REFERRAL OP CYSTOSCOPY 10/24/2018 done in office, Dr Kirkland DILATION AND CURETTAGE (D&C) D&C- retained placenta REMOVE GALLBLADDER 1993 Cholecystectomy Review of patient's allergies indicates: Allergen Reactions Penicillins Rash When young; not sure of details Family History Problem Relation Name Age of Onset Hypertension Mother Stroke Mother Other (cervical cancer) Sister dx 47 Cancer Other Cancer Uncle (Unspecified) maternal Heart Disorder Other Stroke Other Mental Disorder Grandmother (Maternal) AD Cancer Sister BREAST dx at 49 yo., tumor in liver Breast Cancer Sister 49 BREAST dx at 49 yo., tumor in liver Diabetes Uncle (Unspecified) Thyroid Disorder None Eye Problems None Patient denies HX AMD, glaucoma, retinal detachments or blindness Family Status Relation Status Mo Alive Fa Alive Sis Alive Sis Alive Марина Alive Son Alive Son Alive Other (Not Specified) UNCLE (Not Specified) Other (Not Specified) Other (Not Specified) MGMA (Not Specified) Sis (Not Specified) UNCLE (Not Specified) NONE (Not Specified) NONE (Not Specified) Social History Socioeconomic History Marital status: Spouse name: Not on file Number of children: Not on file Years of education: Not on file Highest education level: Not on file Occupational History Not on file Tobacco Use Smoking status: Never Passive exposure: Never Smokeless tobacco: Never Vaping Use Vaping status: Never Used Substance and Sexual Activity Alcohol use: No Drug use: No Comment: lots of coffee Sexual activity: Yes Partners: Male control/protection: Surgical Comment: pt's had vasectomy Other Topics Concern Not on file Social History Narrative at home looking at job traveling kids usually exercise class twice weekly - 1989 3 children 0 gc No pets except fish Social Needs Financial Resource Strain: Low Risk (08/06/2024) Financial Resource Strain Do you have any trouble paying for your medications, or do you think you might in the future? (Adult - for ages 18 years and over): No Does your family have trouble paying for medicine? (Household - for ages 0-17 years): Not on file Food Insecurity: No Food Insecurity (08/06/2024) Food Insecurity Do you need food for this week? (Adult - for ages 18 years and over): No Are you able to get enough food for your family? (Household - for ages 0-17 years): Not on file Does your family need food this week? (Household - for ages 0-17 years): Not on file Do you always have enough food for your family? (Household - for ages 0-17 years): Not on file Transportation Needs: No Transportation Needs (08/06/2024) Transportation Needs Do you have trouble getting a ride to medical visits or work? (Adult - for ages 18 years and over):Not on file Does your family have a hard time getting a ride to doctors visits? (Household - for ages 0-17 years): Not on file Has lack of transportation kept you from medical appointments, meetings, work, or from getting things needed for daily living? Check all that apply. (Adult - for ages 18 years and over): No Do you (or your family) have trouble finding or paying for a ride (transportation)? (Household - for ages 0-17 years): Not on file Social Connections: Socially Integrated (08/06/2024) Social Connections How often do you feel lonely or isolated from those around you? (Adult - for ages 18 years and over): Never Housing Stability: Low Risk (08/06/2024) Housing Stability Do you currently live in a chcf or have no steady place to sleep at night? (Adult - for ages 18 years and over): No Do you think you are at risk of becoming homeless? (Adult - for ages 18 years and over): Not on file Does your family worry about paying for your home or becoming homeless? (Household - for ages 0-17 years): Not on file Are you homeless or worried that you might be in the future? (Adult - for ages 18 years and over): No Are you (or your family) homeless or worried that you might be in the future? (Household - for ages0-17 years): Not on file Review of Systems Constitutional: Negative for activity change, appetite change, chills, diaphoresis, fatigue, fever and unexpected weight change. Respiratory: Negative for cough, chest tightness, shortness of breath and wheezing. Cardiovascular: Negative for chest pain, palpitations and leg swelling. Gastrointestinal: Positive for abdominal pain (cramps occ). Negative for abdominal distention. Genitourinary: Positive for urgency. Musculoskeletal: Positive for back pain. Psychiatric/Behavioral: Negative for agitation and behavioral problems. The patient is nervous/anxious. Objective BP 151/89 | Pulse 89 | Temp 97.5 F (36.4 C) (Infrared ) | Resp 18 | Wt 165 lb 8 oz (75.1 kg) | LMP 04/18/2020 (Approximate) | SpO2 97% | BMI 27.54 kg/m | BSA 1.86 m Physical Exam Constitutional: Appearance: Normal appearance. HENT: Head: Normocephalic and atraumatic. Nose: Nose normal. Eyes: Extraocular Movements: Extraocular movements intact. Cardiovascular: Rate and Rhythm: Normal rate and regular rhythm. Pulmonary: Effort: Pulmonary effort is normal. Breath sounds: Normal breath sounds. Abdominal: Hernia: There is no hernia in the left inguinal area or right inguinal area. Genitourinary: General: Normal vulva. Exam position: Supine. Pubic Area: No rash or pubic lice. Labia: Right: No rash or tenderness. Left: No rash or tenderness. Urethra: No urethral swelling. Vagina: No vaginal discharge. Comments: hemorrhoid Musculoskeletal: General: Normal range of motion. Lymphadenopathy: Lower Body: No right inguinal adenopathy. No left inguinal adenopathy. Neurological: General: No focal deficit present. Mental Status: She is alert and oriented to person, place, and time. Psychiatric: Behavior: Behavior normal. 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 for abdominal pain Other orders - Gabapentin 400 MG Oral Capsule (Neurontin); Take 1 Capsule by mouth in the morning and 1 Capsule at noon and 1 Capsule before bedtime. - Lisinopril-hydroCHLOROthiazide 10-12.5 MG Oral Tablet; Take 1 Tablet by mouth in the morning. Follow Up: Return in about 1 month (around 09/20/2024) for Clinic Visit. | For: Clinic Visit f/u PAP Start BP med Check BP Diet Autumn Ruff MD * Brandi Myers LPN - 08/20/2024 6:23 PM EST PRE - ADMINISTRATION DOCUMENTATION Are you experiencing any cold symptoms or fever? No Have you had Guillain-Bloomingdale Syndrome (an illness that causes paralysis) within the last 6 weeks? No Have you had the flu shot in the past? YES Have you ever had a reaction to the flu shot? No Brandi Myers LPN, 08/20/2024 6:23 PM Immunization Administration Documentation Time Out Procedure Performed: Yes Patient Identified (Ask Name/Date of ): Yes Does the patient have a fever greater than 101 degrees today? No Patient allergic to latex? No [facility] Stock: No Immunization(s) verified: Yes, Immunization Name: Flu, VIS Sheet(s) given: Yes Verified Side and Site: Yes Verified Shot(s) with Parent(s)/Patient: Yes documented in this encounter Nursing Notes * Brandi Myers LPN - 08/20/2024 6:16 PM EST Chief Complaint Patient presents with PAP Pt here today for her pap documented in this encounter Plan of Treatment Upcoming Encounters Date Type Department Care Team (Late st Contact Info) Description 08/27/2024 10:35 AM EST Imaging Cardiac Studies, [facility] [address] [place] [id number] 09/24/2024 6:00 PM EST [facility] [address] [place] [phone] Autumn Ruff MD [address] [place] [address] 11/02/2024 12:30 PM EDT Imaging Radiology [facility] [address] [place] [address] 03/05/2025 2:20 PM EDT [facility] [address] [place] [phone] December, Eugenio Zamora MD [address] [place] [address] Scheduled Orders Name Type Priority Associated Diagnoses Orde r Schedule SHUTTLE BUGGY 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 PAP SCREEN Pathology Routine Pap smear for cervical cancer screening Expected: 08/20/2024, Expires: 09/20/2025 Scheduled Procedures Name Priority Associated Diagnoses Date/Ti me COLONOSCOPY FLEXIBLE PROXIMAL DIAGNOSTIC Recall Screen for colon cancer Health Maintenance Due Date Last Done Comments Cologuard 2013 Fecal Occult Blood Test 2013 Sigmoidoscopy 2013 Pneumococcal Vaccine: 50+ Years (1 of 1 - PCV) 2018 PAP SMEAR-ANNUAL AGES 18-100 01/02/2023 01/02/2022, 08/22/2017, 08/22/2017, Additional history exists COVID-19 Vaccine ( season) 2024 04/26/2021, 03/26/2021, 12/15/2020, Additional history exists Colonoscopy 03/15/2025 03/15/2020, 02/24, 12/05/2018, Additional history exists Colorectal Cancer Screening 03/15/2025 Mammogram 06/02/2025 06/02/2024, 08/0 10/2022, 12/19/2021, Additional history exists Depression Screening 08/20/2025 08/20/2024 Diabetes Screening 05/11/2027 05/11/2024, 0 04/12/2023, 10/12/2022, [...] as of this encounter Visit Diagnoses Diagnosis Pap smear for cervical cancer screening- Primary Screening for malignant neoplasm of the cervix Need for prophylactic vaccination and inoculation against influenza HTN, goal below 140/90 Unspecified essential hypertension Pain of upper abdomen Abdominal pain, other specified site documented in this encounter Care Teams Store Administrator Relationship Specialty Start Date End Date December, Eugenio Zamora MD PCP - General Family Medicine 02/25/23 documented as of this encounter"
--- OUTSIDE RECORDS SUMMARY | 2024-10-08 21:00 | External Medical Summary | Summary of Care ---
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 the lumbar spine as described,most prominent at L4-L5. 4. Nonspecific decreased T1 weighted signal intensity within the bonemarrow. Although nonspecific, this finding can be seen in patients withchronic anemia, red marrow reconversion, marrow infiltrative processes,and in those who use inhaled tobacco products. Further correlation withclinical history and hematologic laboratory analysis is recommended. 5. Additional findings as described above. Eugenio Flores MD RAD MRI-MRA documented in this encounter Visit Diagnoses Diagnosis DDD (degenerative disc disease), thoracic Degeneration of thoracic or thoracolumbar intervertebral disc Mid back pain, chronic Backache, unspecified Lumbar back pain Lumbago Screening mammogram for breast cancer documented in this encounter Care Teams Security Manager Relationship Specialty Start Date End Date December, Eugenio Zamora MD [address] [place] [address] PCP - General Family Medicine 02/25/23 documented as of this encounter
--- OUTSIDE RECORDS SUMMARY | 2024-10-08 21:00 | External Medical Summary | Summary of Care ---
Author Name Unknown Organization [facility] Address [address] [facility] [place] [address] Phone [phone] Care Team Providers Care Mechanical Integrity Engineer Name Role Phone DecemberEugenio MD Primary Care Provider [phone] Reason for Visit * Reason Onset Date Comments Advice 09/10/2024 Test results Encounter Details Date Type Department Care Team (Late st Contact Info) Description 09/10/2024 [facility] [address] [place] [phone] Eugenio Flores MD [address] [place] [address] Advice (Test results ) Allergies Active Allergy Reactions Criticality Noted Date Comments Penicillins Rash Medium 02/21/1999 When young; not sure of details documented as of this encounter (statuses as of 09/11/2024) Medications loratadine (CLARITIN) 10 MG TabletIndications: Dermatitis [...] with food for pain. 30 Capsule 05/13/20 Active Additional Information Patient not taking.Reported on 08/20/2024 Gabapentin 400 MG Oral Capsule (Neurontin) Take 1 Capsule by mouth in the morning and 1 Capsule at noon and 1 Capsule before bedtime. 270 Capsule 1 08/20/20 Active Hyoscyamine Sulfate 0.125 MG Oral Tablet (Levsin)Indication s:Pain of upper abdomen Take 1 Tablet by mouth every 4 hours as needed for Cramping. for abdominal pain 40 Tablet 2 08/20/20 Active Lisinopril-hydroCH LOROthiazide 10-12.5 MG Oral Tablet Take 1 Tablet by mouth in the morning. 90 Tablet 1 08/20/20 Active documented as of this encounter (statuses as of 09/11/2024) Active Problems Problem Noted Date Diagnosed Date [...] as of this encounter (statuses as of 09/11/2024) Resolved Problems Problem Noted Date Diagnosed Date [...] as of this encounter (statuses as of 09/11/2024) Immunizations Name Administration Dates Next Due COVID-19 [...] PM EST documented as of this encounter Miscellaneous Notes * Telephone Encounter - Eugenio Flores MD - 09/11/2024 5:09 PM EST I don't see recommendation documented in other providers notes and I have not discussed this with patient previously. Recommend appointment to discuss if she would like to pursue eval with urology. We will determine appropriateness at that time. Eugenio Flores MD * Telephone Encounter - Rose Pham LPN - 09/10/2024 9:53 AM EST Patient is aware and verbalizes understanding. She continues to have an intermittent dull chest pain- if it is not the heart then what else could be causing this discomfort? She stated that since ECHO came back normal provider was going to investigate ongoing UTI symptoms with a Urology referral . Pended referral if agreeable. * Telephone Encounter - Eugenio Flores MD - 09/10/2024 9:16 AM EST Echo is normal without wall motion abnormalities or valvular disease noted. Eugenio Flores MD * Telephone Encounter - Cecilia Mathis OSA - 09/10/2024 8:52 AM EST Patient called looking for cardiac stress test results. Please call patient with results. documented in this encounter Plan of Treatment Upcoming Encounters Date Type Department Care Team (Late st Contact Info) Description 09/12/2024 4:00 PM EST Telemedicine Family Practice [facility] [address] [place] [address] Leigh Martinez MD [address] [place] [address] [place] [phone] 09/14/2024 5:40 PM EST [facility] [place] [phone] Radha Leung MD [address] [facility] [place] [address] 11/02/2024 12:30 PM EDT Imaging Radiology [facility] [address]enio [place] [phone] 03/05/2025 2:20 PM EDT [facility] [address] [place] [phone] Eugenio Flores MD [address] [place] [address] Scheduled Procedures Name Priority Associated Diagnoses Date/Ti me COLONOSCOPY FLEXIBLE PROXIMAL DIAGNOSTIC Recall Screen for colon cancer Health Maintenance Due Date Last Done Comments Cologuard 2013 Fecal Occult Blood Test 2013 Sigmoidoscopy 2013 Pneumococcal Vaccine: 50+ Years (1 of 1 - PCV) 2018 COVID-19 Vaccine ( - season) 2024 04/26/2021, 03/26/2021, 12/15/2020, Additional [...] filedocumented as of this encounter Care Teams Mechanical Integrity Engineer Relationship Specialty Start Date End Date December, Eugenio Zamora MD PCP - General Family Medicine 02/25/23 documented as of this encounter
--- OUTSIDE RECORDS SUMMARY | 2024-10-08 21:00 | External Medical Summary | Summary of Care ---
Author Name Unknown Organization [facility] Address [address] [facility] [place] [address] Phone [phone] Care Team Providers Care Diesel Engine Assembler Name Role Phone Eugenio Flores MD Primary Care Provider [phone] Reason for Visit * Reason Onset Date Comments PAP Pt here today fo r her pap Medication Administration 08/20/2024 Flu an d/or Pneumo Inj Encounter Details Date Type Department Care Team (Late st Contact Info) Description 08/20/2024 6:00 PM EST Office [place] [facility] [place] [address] [facility] [place] [phone] Autumn Ruff MD [address] [place] [address] Pap smear for cervical cancer screening*; Need for prophylactic vaccination and inoculation against influenza; HTN, goal below 140/90; Pain of upper abdomen Allergies Active Allergy Reactions Criticality Noted Date Comments Penicillins Rash Medium 02/21/1999 When young; not sure of details documented as of this encounter (statuses as of 08/21/2024) Medications loratadine (CLARITIN) 10 MG TabletIndications: Dermatitis [...] as of this encounter (statuses as of 08/21/2024) Active Problems Problem Noted Date Diagnosed Date [...] as of this encounter (statuses as of 08/21/2024) Resolved Problems Problem Noted Date Diagnosed Date Resolved Date Compression fracture of thoracic vertebra 02/25/2024 03/04/2024 Acute bilateral low back lr n without sciatica 02/24/2021 12/05/2021 Wedge compression [...] as of this encounter (statuses as of 08/21/2024) Immunizations Name Administration Dates Next Due COVID-19 mRNA, LNP-s, No Pre serve, 2-Dose Series (Moderna) 04/26/2021,03/26/2021,12/15/2020, 021 PPD 08/22/2022,08/11/2014,05/29/2004 Seasonal Influenza Vac., MDV , IM, 0.5 mL (Fluzone) 07/07/2014,05/11/2013,06/19/2012, 011,07/01/2006,07/13/2005,08/03/2003,05/1999 Seasonal Influenza, PF, 6 M & above, [...] 08/06/2024 Does the household have a re lar source of income? (Household - for ages [...] high And scheduled for stress test early araceli Will start BP med Advised patient to [...] LESION,OTHER,EXCISION 11/14/2009 Right breast biopsy (benign) [place] [facility] [place]m COLONOSCOPY, DIAGNOSTIC (RECTUM) 12/05/2018 poor prep/internal hemorrhoids/biopsies show hyperplastic polyps/recall 1-2 years with 2 day prep/COLONOSCOPY FLEXIBLE PROXIMAL DIAGNOSTIC performed by Remedios Leonardo MD at [facility] COLONOSCOPY, DIAGNOSTIC (RECTUM) 03/15/2020 normal, repeat 5 yrs / COLONOSCOPY FLEXIBLE PROXIMAL DIAGNOSTIC performed by Remedios Leonardo MD at [facility] COLONOSCOPY, GI REFERRAL OP CYSTOSCOPY 10/24/2018 done [...] Stability Do you currently live in a retirement or have no steady place to sleep [...] smear for cervical cancer screening (Primary) - PAPERHANGER AND PAINTER PAP SCREEN; Future; Expected date: 08/20/2024 Need [...] symptoms or fever? No Have you had Guillain-[place] Syndrome (an illness that causes paralysis) within [...] today? No Patient allergic to latex? No VFC Stock: No Immunization(s) verified: Yes, Immunization Name: [...] 08/27/2024 10:35 AM EST Imaging Cardiac Studies, Health system [address] [place] [address] 09/24/2024 6:00 PM EST [facility] [address] [place] [phone] Autumn Ruff MD [address] [place] [address] 11/02/2024 12:30 PM EDT Imaging Radiology [facility] [address] [place] [phone] 03/05/2025 2:20 PM EDT Office Visit [facility] [place] [address] [facility] [place] [phone] Eugenio Flores MD [address] [place] [address] Pending Results Name Type Priority Associated Diagnoses Date /Time PAPERHANGER AND PAINTER PAP SCREEN Pathology Routine Pap smear for cervical cancer screening 08/21/2024 10:41 AM EST Scheduled Orders Name Type Priority Associated Diagnoses Orde r Schedule PAPERHANGER AND PAINTER PAP SCREEN Pathology Routine Pap smear for [...] site documented in this encounter Care Teams Diesel Engine Assembler Relationship Specialty Start Date End Date December, Eugenio Zamora MD PCP - General Family Medicine 02/25/23 documented as of this encounter"
--- OUTSIDE RECORDS SUMMARY | 2024-10-08 21:00 | External Medical Summary ---
Author Name Unknown Address Unknown Organization : Laboratory Report Ordering Provider Test Date Status LINWOOD CARVER 08/06/2024 11:12:00 Final Observation Date Value Abnormality Reference (Units ) Status Color of Urine by Auto 08/06/2024 11:12:00 Dark Yellow Abnormal Light Yellow, Yellow Final Clarity, Urine 08/06/2024 11:12:00 Clear Clear Final Glucose [Mass/volume] in Urine by Automated test strip 08/06/2024 11:12:00 Negative Negative (mg/dL) Final Bilirubin.total [Presence] in Urine by Automated test strip 08/06/2024 11:12:00 Negative Negative Final Ketones [Mass/volume] in Urine by Automated test strip 08/06/2024 11:12:00 Negative Negative (mg/dL) Final Specific gravity, Urine 08/06/2024 11:12:00 1.010 1.003-1.030 Final Hemoglobin [Presence] in Urine by Automated test strip 08/06/2024 11:12:00 Negative Negative Final pH, Urine 08/06/2024 11:12:00 6.0 5.0, 5.5, 6.0, 6.5, 7.0, 7.5 (units) Final Protein [Mass/volume] in Urine by Automated test strip 08/06/2024 11:12:00 Negative Negative (mg/dL) Final Urobilinogen, Urine 08/06/2024 11:12:00 1.0 0.2, 1.0 (mg/dL) Final Nitrite [Presence] in Urine by Automated test strip 08/06/2024 11:12:00 Negative Negative Final Leukocyte esterase [Presence] in Urine by Automated test strip 08/06/2024 11:12:00 Negative Negative Final Performing Location
--- OUTSIDE RECORDS SUMMARY | 2024-10-08 21:00 | External Medical Summary ---
Author Name Unknown Address Unknown Organization [id number]:[facility] - [address] [place] [address] Laboratory Report Ordering Provider Test Date Status LINWOOD CARVER 07/24/2024 12:45:06 Final Observation Date Value Abnormality Reference (Units) Status Bacteria identified in Specimen by Culture 07/24/2024 12:45:06 No significant growth Final Test: Culture, Urine, Quanti tative
Specimen Source: Urine, Clean Catch
Specimen Type: Urine
Specimen Date: 07/24/2024 1245
Result Date: 07/25/2024 1559
Result Status: Final result
Resulting Lab: [facility]
[address]
[place] [address]

CULTURE

No significant growth

null Performing Location [facility] - [address] [place] [address]
--- OUTSIDE RECORDS SUMMARY | 2024-10-08 21:00 | External Medical Summary | Summary of Care ---
Author Name Unknown Organization [facility] Address [address] [facility] [place] [address] Phone [phone] Care Team Providers Care Poured Pipe Maker Name Role Phone DecemberEugenio MD Primary Care Provider [phone] Reason for Visit * Reason Onset Date Comments Advice 09/10/2024 Test results Encounter Details Date Type Department Care Team (Late st Contact Info) Description 09/10/2024 [facility] [address] [place] [phone] Eugenio Flores MD [address] [place] [address] Advice (Test results ) Allergies Active [...] encounter Miscellaneous Notes * Telephone Encounter - Vanita Joel LPN - 09/14/2024 12:51 PM EST Has appt scheduled for 09/14 * Telephone Encounter - Eugenio Flores MD [...] Description 09/14/2024 5:40 PM EST [facility] [address] [place] [phone] Radha Leung MD [address] [place] [phone] 11/02/2024 12:30 PM EDT Imaging Radiology [facility] [address] [place] [phone] 03/05/2025 2:20 PM EDT Office Visit [facility] [place] [address] [place] [phone] Eugenio Flores MD [address] [facility] [place] [phone] Scheduled Procedures Name Priority Associated Diagnoses Date/Ti [...] filedocumented as of this encounter Care Teams Poured Pipe Maker Relationship Specialty Start Date End Date December, Eugenio Zamora MD PCP - General Family Medicine 02/25/23 documented as of this encounter
--- OUTSIDE RECORDS SUMMARY | 2024-10-08 21:00 | External Medical Summary | Summary of Care ---
Author Name Unknown Organization [facility] Address [address] [facility] [place] [address] Phone [phone] Care Team Providers Care Para Machine Operator Name Role Phone Eugenio Flores MD Primary Care Provider [phone] Reason for Visit * Reason Comments Urinary Tract Infection Symptoms Pt stat es that she is here due to UTI- pressure, headache, frequency, nausea, cramps ongoing for 3 days. She states that she has tried a yeast infection medication Encounter Details Date Type Department Care Team (Late st Contact Info) Description 07/24/2024 12:40 PM EST Office Visit [facility] [address] [facility] [place] [phone] Mikel Calles MD [address] [place], [place] [phone] Acute cystitis without hematuria* Allergies Active Allergy Reactions Criticality Noted Date Comments Penicillins Rash Medium 02/21/1999 When young; not sure of details documented as of this encounter (statuses as of 07/24/2024) Medications loratadine (CLARITIN) 10 MG TabletIndications: Dermatitis [...] of 3 hours. 255 g 3 Active Silver sulfADIAZINE 1 % External Cream (Silvadene)Indicat ions:Skin ulcer, limited to breakdown of skin (HCC) Apply topically to affected area daily. Apply to burn 50 g 1 3 Active Promethazine-DM 6.25-15 MG/5ML Oral Syrup [...] food for pain. 30 Capsule 4 Active Nitrofurantoin Monohyd Macro 100 MG Oral Capsule (Macrobid)Indicati ons:Acute cystitis without hematuria Take 1 Capsule by mouth in the morning and 1 Capsule before bedtime. Do all this for 7 days. With food until gone. 14 Capsule 4 024 Active Phenazopyridine HCl 200 MG Oral Tablet (Pyridium)Indicati ons:Acute cystitis without hematuria Take 1 Tablet by mouth 3 times a day as needed for Other (bladder spasm). After meals for pain with urination 6 Tablet 4 Active documented as of this encounter (statuses as of 07/24/2024) Active Problems Problem Noted Date Diagnosed Date [...] as of this encounter (statuses as of 07/24/2024) Resolved Problems Problem Noted Date Diagnosed Date [...] as of this encounter (statuses as of 07/24/2024) Immunizations Name Administration Dates Next Due COVID-19 [...] Passive Smoke Exposure: Never Smokeless Tobacco: Never Tobacco Cessation:Counseling Given: Not Answered Alcohol Use Standard Drinks/Week Comments No 0 [...] our heating, water, or electric bill? No 02/25/2023 Is your family able to pay t he heat, water, or electric bill? (Household - for ages 0-17 years) Not on file 02/25/2023 Does your family have access to good internet? (Household - for ages 0-17 years) Not on file 02/25/2023 Employment Status Answer Date Recorded Are you unemployed or without regular income? No 02/25/2023 Does the household have a re lar source of income? (Household - for ages 0-17 years) Not on file 02/25/2023 Social Connections Answer Date Recorded How often do you feel lonely or isolated from those around you? Sometimes 02/25/2023 Financial Resource Strain Answer Date R ecorded [...] ages 0-17 years) Not on file 02/25/2023 Comments No Sex and Gender Information Value Date Recorded Sex Assigned at Not on file Legal Sex Female 5:07 AM EST Gender Identity Not on file Sexual Orientation Not on file documented as of this encounter Last Filed Vital Signs Vital Sign Reading Time Taken Comments Blood Pressure 158/84 07/24/2024 12:35 PM EST Pulse 81 07/24/2024 12:35 PM EST Temperature 36.5 C (97.7 F) 07/24/2024 12:[address] Respiratory Rate 18 07/24/2024 12:35 PM EST Oxygen Saturation 99% 07/24/2024 12:35 PM EST Inhaled Oxygen Concentration - - Weight 74.5 kg (164 lb 3.2 oz) 07/24/2024 12:35 PM EST Height 165.1 cm (5' 5") 07/24/2024 12:35 PM EST Body Mass Index 27.32 07/24/2024 12:35 PM EST documented in this encounter Progress Notes * Mikel Calles MD - 07/24/2024 1:35 PM EST Subjective: Beatris Momin is a 53 year old female. Chief Complaint Patient presents with Urinary Tract Infection Symptoms Pt states that she is here due to UTI- pressure, headache, frequency, nausea, cramps ongoing for 3 days. She states that she has tried a yeast infection medication HPI: 4 days of suprapubic pressure. Also some suprapubic cramping. No fever. She used an aldy-doo-cirgvfv topical vaginal yeast infection medication a couple of days ago. This did not make any difference. Some nausea but no vomiting Patient Active Problem List Diagnosis Panic disorder [...] period of 3 hours. 255 g 0 Silver sulfADIAZINE 1 % External Cream (Silvadene) Apply topically to affected area daily. Apply toburn 50 g 1 Promethazine-DM 6.25-15 MG/5ML Oral Syrup Take 5 [...] No current facility-administered medications for this visit. Review of patient's allergies indicates: Allergen Reactions Penicillins Rash When young; not sure of details Objective: BP 158/84 | Pulse 81 | Temp 97.7 F (36.5 C) (Tympanic) | Resp 18 | Ht 5' 5" (1.651 m) | Wt 164 lb 3.2 oz (74.5 kg) | LMP 04/18/2020 (Approximate) | SpO2 99% | BMI 27.32 kg/m | BSA 1.85 m Physical Exam: CONST: alert, pleasant, no acute distress HEAD: normocephalic, atraumatic Eyes - PERRLA, EOM'I OROPHARYNX: clear, no swelling or erythema, moist CV: regular rate and rhythm, no murmur CHEST: clear to auscultation bilaterally, no rales or wheezing ABD: bilat mild CVA tenderness. Tender over suprapubic area. EXT: no edema, no joint swelling or deformities, Results for orders placed or performed in visit on 07/24/24 URINALYSIS, POINT OF CARE Result Value Ref Range Color, Urine Latham (A) Light Yellow, Yellow Clarity, Urine Turbid (A) Clear Glucose, Urine Negative Negative mg/dL Bilirubin, Urine Small (A) Negative Ketone, Urine Negative Negative mg/dL Specific Plush, Urine 1.025 1.003 - 1.030 Blood, Urine Negative Negative pH, Urine 6.0 5.0, 5.5, 6.0, 6.5, 7.0, 7.5 units Protein, Urine 30 (A) Negative mg/dL Urobilinogen, Urine 2.0 (A) 0.2, 1.0 mg/dL Nitrite, Urine Negative Negative Esterase, Urine Small (A) Negative *Note: Due to a large number of results and/or encounters for the requested time period, some results have not been displayed. A complete set of results can be found in Results Review. ASSESSMENT/PLAN: UTI (urinary tract infection) (Primary)- emperically Rx Macrobid 100mg BID x 7 days. - CULTURE, URINE, QUANTITATIVE Other orders - URINALYSIS, POINT OF CARE Mikel Calles MD documented in this encounter Nursing Notes * Indiana Kraft LPN - 07/24/2024 12:38 PM EST Beatris Momin is a 53 year old female who presents today for Chief Complaint Patient presents with Urinary Tract Infection Symptoms Pt states that she is here due to UTI- pressure, headache, frequency, nausea, cramps ongoing for 3 days. She states that she has tried a yeast infection medication documented in this encounter Plan of Treatment Upcoming Encounters Date Type Department Care Team (Late st Contact Info) Description 2024 2:30 PM EST Office Visit [facility] [address] [place] [address] [place]ena [place] PA-C [address] [place] [address] 11/02/2024 4:00 PM EDT [address] Rad[address], [address] [address] 03/05/2025 2:20 PM EDT Office Visit Family Practice, [address] [place] [phone] December, Eugenio Zamora MD [address] [place] [address] Pending Results Name Type Priority Associated Diagnoses Date /Time CULTURE, URINE, QUANTITATIVE Lab Routine Acute cystitis without hematuria 07/24/2024 12:45 PM EST Scheduled Procedures Name Priority Associated Diagnoses Date/Ti [...] Procedure Name Priority Date/Time Associated Diagnosis Comments URINALYSIS, POINT OF CARE CAITLIN 07/24/2024 12:40 PM EST documented in this encounter Results * (ABNORMAL) URINALYSIS, POINT OF CARE (07/24/2024 12:40 PM EST) Color, Urine Latham(A) Light Yellow, Yellow 07/24/2024 12:43 PM EST [facility]- Clarity, Urine Turbid(A) Clear 07/24/2024 12:43 PM EST [facility]- Glucose, Urine Negative Negative mg/dL 07/24/2024 12:43 PM EST [facility]- Bilirubin, Urine Small(A) Negative 07/24/2024 12:43 PM EST [facility]- Ketone, Urine Negative Negative mg/dL 07/24/2024 12:43 PM EST [facility]- Specific Plush, Urine 1.025 1.003 - 1.030 07/24/2024 12:43 PM EST [facility]- Blood, Urine Negative Negative 07/24/2024 12:43 PM EST [facility]- pH, Urine 6.0 5.0, 5.5, 6.0, 6.5, 7.0, 7.5 units 07/24/2024 12:43 PM EST [facility]- Protein, Urine 30(A) Negative mg/dL 07/24/2024 12:43 PM EST [facility] Urobilinogen, Urine 2.0(A) 0.2, 1.0 mg/dL 07/24/2024 12:43 PM EST [facility] Nitrite, Urine Negative Negative 07/24/2024 12:43 PM EST [facility] 56 Esterase, Urine Small(A) Negative 07/24/2024 12:43 PM EST [facility] Urine 07/24/2024 12:4 0 PM EST 07/24/2024 12:43 PM EST us Mikel Calles MD LAB POINT OF CARE TE ST DOCKED DEVICE UNSOLICITED RESULTS Final Result [facility] [address] [place] [address], [facility] documented in this encounter Visit Diagnoses Diagnosis Acute cystitis without hematuria- Primary Acute cystitis documented in this encounter Care Teams Para Machine Operator Relationship Specialty Start Date End Date December, Eugenio Zamora MD [address] [place] [address] PCP - General Family Medicine 02/25/23 documented as of this encounter
--- OUTSIDE RECORDS SUMMARY | 2024-10-08 21:01 | External Medical Summary | Summary of Care ---
Author Name Unknown Organization [facility] Address [address] [facility] [place] [address] Phone [phone] Care Team Providers Care Taker Off Name Role Phone Eugenio Flores MD Primary Care Provider [phone] Reason for Visit * Reason Onset Date Comments Appointment 05/25/2024 Encounter Details Date Type Department Care Team (Late st Contact Info) Description 05/25/2024 Telephone [address] [facility] [place] [id number] Alyssa Gardiner, RT (R) Appointment Allergies Active Allergy Reactions Criticality Noted Date Comments Penicillins Rash Medium 02/21/1999 When young; not sure of details documented as of this encounter (statuses as of 05/25/2024) Medications Medication Sig Dispensed Refills Start Date [...] as of this encounter (statuses as of 05/25/2024) Active Problems Problem Noted Date Diagnosed Date [...] as of this encounter (statuses as of 05/25/2024) Resolved Problems Problem Noted Date Diagnosed Date [...] Overview: Resolved per Screening Diagnosis Protocol #6 Other general counseling and advice for contraceptive management 06/28/2004 09/23/2008 Overview: Resolved per Duplicate Protocol #2. INFEC OTITIS EXTERNA, LEFT 06/28/2004 0 12/19/2009 [...] of toe 10/20/2002 01/05/2004 FIBROMYALGIA 10/20/2002 11/19/2011 Other general counseling and advice for contraceptive management 10/20/2002 02/07/2016 Nausea 06/05/2002 01/05/2004 Overview: ICD-10 update of inactive term Candidal vulvovaginitis 03/23/200212/24 Urinary frequency 03/23/2002 01/05/2004 Myalgia and myositis 03/23/2002 004 Abdominal pain, generalized 09/13/2001 01/05/2004 Constipation 09/13/2001 01/05/2004 Overview: ICD-10 update of inactive term Chest pain 09/13/2001 01/05/2004 Convulsions 03/21/2000 07/06/2010 Somatization disorder 01/10/20002011 Vertigo 01/18/2004 Hereditary spherocytosis documented as of this encounter (statuses as of 05/25/2024) Immunizations Name Administration Dates Next Due COVID-19 mRNA, LNP-s, No Pre serve, 2-Dose Series (Moderna) 04/26/2021,03/26/2021,12/15/2020, 0 21 PPD 08/22/2022,08/11/2014 Seasonal Influenza, PF, 6 M & above, IM , (FluLaval or Fluzone) 07/01/2023,08/22/2022,07/17/2020, 0 19,06/05/2018,08/05/2017 Seasonal Influenza, Quadriva lent, No Preserve, IM 06/19/2016,08/05/2015 Seasonal Influenza, Trivalen t, (IIV3), with Preserv, (Fluzone) 07/07/2014,05/11/2013,06/19/2012, 0 11,07/01/2006 TDAP (age 10 and older)(Boostrix) 02/25/2024,07/2014 documented [...] encounter Miscellaneous Notes * Telephone Encounter - Alyssa Gardiner RT (R) - 05/25/2024 11:39 AM EDT Left message for patient to arrive at 7:30am for check in and to call back with any yes answers to screening questions If you answer "yes" to any of the following, please give us a call at [phone] before coming to your MRI appointment: Do you have a pacemaker/defibrillator? Do you have any electronic or mechanical implants? Have you had a recent colonoscopy in the last 30 days? Are you or ? Do you work around metal or ever gotten metal in your eyes? Any dermals or body piercing you cannot remove? Do you wear an insulin pump or diabetic monitor? Have you had any tattoos or permanent makeup in the last 4 weeks? documented in this encounter Plan of Treatment Upcoming Encounters Date Type Department Care Team (Late st Contact Info) Description 05/30/2024 8:00 AM EDT Imaging Radiology [address] [place] [address] 05/30/2024 8:30 AM EDT Imaging Radiology [address] [place] [address] 06/02/2024 3:45 PM EDT Imaging Radiology [address] [place] [address] 06/16/2024 1:40 PM EDT Office Visit [facility] [address] [place] [facility] [place] [phone] Rad[facility] Leung [facility] [address] [facility] [address] 11/02/2024 4:00 PM EDT [address] [address] 03/05/2025 2:20 PM EDT Office Visit [facility] [address] [place] [facility] [place] [phone] Eugenio Flores MD [address] [place] [address] Scheduled Procedures Name Priority Associated Diagnoses Date/Ti [...] filedocumented as of this encounter Care Teams Taker Off Relationship Specialty Start Date End Date December, Eugenio Zamora MD [address] [place] [address] PCP - General Family Medicine 02/25/23 documented as of this encounter
--- OUTSIDE RECORDS SUMMARY | 2024-10-08 21:01 | External Medical Summary | Summary of Care ---
Author Name Unknown Organization [facility] Address [address] [facility] [place] [address] Phone [phone] Care Team Providers Care Fermentation Operator Name Role Phone Eugenio Flores MD Primary Care Provider [phone] Encounter Details Date Type Department Care Team (Late st Contact Info) Description 05/13/2024 Orders Only [facility] [address] [place] [address] Autumn Ruff MD [address] [place] [address] Allergies Active Allergy Reactions Criticality Noted Date Comments Penicillins Rash Medium 02/21/1999 When young; not sure of details documented as of this encounter (statuses as of 05/13/2024) Medications Medication Sig Dispensed Refills Start Date [...] needed for Cough. 120 mL 10/20/2023 Active Alendronate Sodium 70 MG Oral Tablet (Fosamax)Indications :Age-related osteoporosis without current pathological fracture Take 1 Tablet by mouth once a week. with 8 oz. water 30 minutes before first meal of the day. Remain upright for 30 min after taking tablet. 15 Tablet 3 01/31/2024 Active Gabapentin 400 MG Oral Capsule (Neurontin) Take 1 Capsule by mouth in the morning and 1 Capsule at noon and 1 Capsule before bedtime. 270 Capsule 1 02/25/2024 Active Methocarbamol 500 MG Oral Tablet (Robamol) Take 1 Tablet by mouth in the morning and 1 Tablet at noon and 1 Tablet before bedtime. 270 Tablet 1 02/25/2024 Active documented as of this encounter (statuses as of 05/13/2024) Active Problems Problem Noted Date Diagnosed Date [...] as of this encounter (statuses as of 05/13/2024) Resolved Problems Problem Noted Date Diagnosed Date [...] as of this encounter (statuses as of 05/13/2024) Immunizations Name Administration Dates Next Due COVID-19 [...] on file documented as of this encounter Plan of Treatment Upcoming Encounters Date Type Department Care Team (Late st Contact Info) Description 05/13/2024 5:20 PM EDT [facility] [address] [facility] [address] DecemberEugenio MD [address] [facility] [address] 06/02/2024 3:45 PM EDT Imaging Radiology [facility] [address] [facility] [place] [address] [place] [address] 06/16/2024 1:40 PM EDT [facility] Visit [facility] [address] [facility] [phone] Radha Leung MD [address] [facility] [address] 11/02/2024 4:00 PM EDT Imaging Radiology, [facility] [address] [facility] [address] 03/05/2025 2:20 PM EDT Office Visit [facility] [address] [facility] [phone] DecemberEugenio MD [address] [facility] [address] Scheduled Procedures Name Priority Associated Diagnoses Date/Ti [...] Procedure Name Priority Date/Time Associated Diagnosis Comments CHEMISTRY-OUTSIDE Routine 05/11/2024 documented in this encounter Results * (ABNORMAL) CHEMISTRY-OUTSIDE (05/11/2024) Not all results display below - see scan for full detail OUTSIDE LAB (SEE SCANNED REPORT) Comment:SCAN INCLUDES - CMP, A1C, CBCD CREATININE 0.49(A) 0.50 - 1.03 MG/DL OUTSIDE LAB (SEE SCANNED REPORT) EGFR 111 >=60 ML/MIN OUTSIDE LAB (SEE SCANNED REPORT) POTASSIUM 3.7 3.5 - 5.3 MMOL/L OUTSIDE LAB (SEE SCANNED REPORT) GLUCOSE 102(A) 65 - 99 MG/DL OUTSIDE LAB (SEE SCANNED REPORT) HOURS FASTING OUTSID E LAB (SEE SCANNED REPORT) TRIGLYCERIDES-OUT SIDE LAB OUTSIDE LAB (SEE SCANNED REPORT) CHOLESTEROL-OUTSI DE LAB OUTSIDE LAB (SEE SCANNED REPORT) HDL-OUTSIDE LAB OUTS [facility] LAB (SEE SCANNED REPORT) CHOL/HDL RATIO-OUTSIDE LAB OUTSIDE LA B (SEE SCANNED REPORT) LDL (CALCULATED)-OUTS [facility] LAB OUTSIDE LAB (SEE SCANNED REPORT) LDL (DIRECT MEASURE)-OUTSIDE LAB OUTSIDE LAB (SEE SCANNED REPORT) HEMOGLOBIN, F5X-UTWLHOK LAB 4.6 <5.7 % OUTSIDE LAB (SEE SCANNED REPORT) PHOSPHORUS-OUTSID E LAB OUTSIDE LAB (SEE SCANNED REPORT) PTH-OUTSIDE LAB OUTS [facility] LAB (SEE SCANNED REPORT) MICROALBUMIN RATIO-OUTSIDE LAB OUTSIDE LA B (SEE SCANNED REPORT) PROTEIN, UA-OUTSIDE LAB OUTSIDE LAB (SEE SCANNED REPORT) HGB 10.0(A) 11.7 - 15.5 G/DL OUTSIDE LAB (SEE SCANNED REPORT) 05/11/2024 Autumn Ruff MD LABORATORY OUTSIDE LAB (SEE SCANNED REPORT) documented in this encounter Care Teams Fermentation Operator Relationship Specialty Start Date End Date December, Eugenio Zamora MD [address] [place] [address] PCP - General Family Medicine 02/25/23 documented as of this encounter
--- OUTSIDE RECORDS SUMMARY | 2024-10-08 21:01 | External Medical Summary | Summary of Care ---
Author Name Unknown Organization [facility] Address [address] [facility] [place] [address] Phone [phone] Care Team Providers Care Tapper Shank Name Role Phone Veronique Porter MD Primary Care Provider [phone] Reason for Visit * Reason Onset Date Comments Medication Refill 05/13/2024 Encounter Details Date Type Department Care Team (Late st Contact Info) Description 05/13/[address] [facility] [address] [place] [address] Veronique Porter MD [address] [place] [address] Age-related osteoporosis without current pathological fracture Allergies Active Allergy Reactions Criticality Noted Date Comments Penicillins Rash Medium 02/21/1999 When young; not sure of details documented as of this encounter (statuses as of 05/14/2024) Medications Medication Sig Dispensed Refills Start Date End Date Status loratadine (CLARITIN) 10 MG TabletIndications:D ermatitis Take 1 Tab by mouth daily. 30 Tab 5 12/14/2015 Active Acetaminophen 325 MG Oral Tablet Take 1 Tablet by mouth. Active albuterol HFA (PROAIR HFA) 108 (90 BASE) MCG/ACT inhalerIndications: Shortness of breath Inhale 2 Puffs by mouth every 4 hours as needed for Wheezing. 1 Inhaler 1 02/18/2019 Active Fluticasone Propionate 50 MCG/ACT Nasal SuspensionIndicatio ns:Acute frontal sinusitis, recurrence not specified Administer 2 Sprays into each nostril 2 times a day. 16 g 5 06/04/2020 Active Ibuprofen 600 MG Oral Tablet (Motrin)Indications :Acute bilateral low back pain without sciatica Take 1 Tab by mouth every 8 hours as needed (pain). 30 Tab 1 02/23/2021 Active Vitamin B-12 1000 MCG Sublingual Tablet SublingualIndicatio ns:Stomatocytosis (HCC) Place 1 Tablet under the tongue in the morning. 90 Tablet 3 10/15/2022 Active traMADol HCl 50 MG Oral Tablet (Ultram)Indications :Compression fracture of thoracic vertebra with routine healing, unspecified thoracic vertebral level, subsequent encounter Take 1 Tablet by mouth every 6 hours as needed (breakthrough pain). 5 Tablet 11/12/2022 Active Naproxen Sodium 220 MG Oral Capsule Take 1 Capsule by mouth daily as needed for Pain, Moderate. Active Triamcinolone Acetonide 0.1 % External Cream (Aristocort)Indicat ions:Neoplasm of uncertain behavior of skin Apply topically to affected area 2 times a day. To affected area. 80 g 5 04/18/2023 Active Ondansetron 4 MG Oral Tablet Disintegrating (Zofran)Indications :Nausea without vomiting Place 1 Tablet on tongue every 8 hours as needed for Nausea. dissolve on tongue. 20 Tablet 1 04/18/2023 Active Hyoscyamine Sulfate 0.125 MG Oral Tablet (Levsin)Indications :Pain of upper abdomen Take 1 Tablet by mouth every 4 hours as needed for Cramping. for abdominal pain 40 Tablet 2 04/18/2023 Active Polyethylene Glycol 3350 17 GM/SCOOP Oral Powder (Miralax)Indication s:Other constipation Mix 1/2 bottle into each of 2 gatorade 32 oz bottles. Drink over a period of 3 hours. 255 g 04/18/2023 Active Silver sulfADIAZINE 1 % External Cream (Silvadene)Indicati ons:Skin ulcer, limited to breakdown of skin (HCC) [...] Active Alendronate Sodium 70 MG Oral Tablet (Fosamax)Indication s:Age-related osteoporosis without current pathological fracture Take 1 Tablet by mouth once a week. with 8 oz. water 30 minutes before first meal of the day. Remain upright for 30 min after taking tablet. 15 Tablet 3 05/14/2024 Active Etodolac 200 MG Oral Capsule (Lodine)Indications :Atypical chest pain Take 1 Capsule by mouth in the morning and 1 Capsule at noon and 1 Capsule before bedtime. with food for pain. 30 Capsule 05/13/2024 Active Alendronate Sodium 70 MG Oral Tablet (Fosamax)Indication s:Age-related osteoporosis without current pathological fracture Take 1 Tablet by mouth once a week. with 8 oz. water 30 minutes before first meal of the day. Remain upright for 30 min after taking tablet. 15 Tablet 3 01/31/2024 Discontinu ed(Refill) documented as of this encounter (statuses as of 05/14/2024) Active Problems Problem Noted Date Diagnosed Date [...] as of this encounter (statuses as of 05/14/2024) Resolved Problems Problem Noted Date Diagnosed Date [...] as of this encounter (statuses as of 05/14/2024) Immunizations Name Administration Dates Next Due COVID-19 [...] encounter Miscellaneous Notes * Telephone Encounter - Kerrie Wells formerly [facility] - 05/14/2024 3:19 PM EDTSigned Prescriptions: Disp Refills Alendronate Sodium 70 MG Oral Tablet (Fosa*15 Tab*3 Sig: Take 1 Tablet by mouth once a week. with 8 oz. water 30 minutes before first meal of the day. Remain upright for 30 min after taking tablet.Authorizing Provider: VERONIQUE PORTER User: KERRIE WELLS documented in this encounter Plan of Treatment Upcoming Encounters Date Type Department Care Team (Late st Contact Info) Description 05/30/2024 8:00 AM EDT Imaging Radiology [address] [place] [address] 05/30/2024 9:30 AM EDT Imaging Radiology [address] [place] [address] 06/02/2024 3:45 PM EDT Imaging Radiology [address] [place] [address] 06/16/2024 1:40 PM EDT Office Visit [facility] [address] [place] [address] Radha Leung MD [address] [place] [address] 11/02/2024 4:00 PM EDT Imaging Radiology, [facility] [address] [facility] [address] [address] 03/05/2025 2:20 PM EDT Office Visit Family [facility] [address] [phone] December, Veronique Zamora MD [address] [place] [address] Scheduled Procedures Name Priority Associated Diagnoses Date/Ti [...] as of this encounter Visit Diagnoses Diagnosis Age-related osteoporosis without current pathological fracture Senile osteoporosis Screening mammogram for breast cancer documented in this encounter Care Teams Tapper Shank Relationship Specialty Start Date End Date December, Veronique Zamora MD [address] [place] [facility] [place] [address] PCP - General Family Medicine 02/25/23 documented as of this encounter
--- OUTSIDE RECORDS SUMMARY | 2024-10-08 21:01 | External Medical Summary | Summary of Care ---
Author Name Unknown Organization [facility] Address [address] [facility] [address] Phone [phone] Care Team Providers Care Certified Orthotist/Pedorthist Name Role Phone Eugenio Flores MD Primary Care Provider Reason for Referral * Precert (Within 10 days (routine)) - Pending Review Specialty Diagnoses / Procedures Referred By Contac t Referred To Contact Radiology Diagnoses DDD (degenerative disc disease), thoracic Mid back pain, chronic Lumbar back pain Procedures MRI L SPINE WO CONTRAST Eugenio Flores MD [address] [place] [address] Referral ID Status Reason Start Date Expiration Date V isits Requested Visits Authorized [id number] Pending Review 05/13/2024 999 999 * Precert (Within 10 days (routine)) - Pending Review Specialty Diagnoses / Procedures Referred By Contac t Referred To Contact Radiology Diagnoses DDD (degenerative disc disease), thoracic Mid back pain, chronic Lumbar back pain Procedures MRI T SPINE WO CONTRAST Eugenio Flores MD [address] [place] [address] Referral ID Status Reason Start Date Expiration Date V isits Requested Visits Authorized [id number] Pending Review 05/13/2024 999 999 Reason for Visit * Reason Comments Hospital Follow-Up Pt states that she i s her for an ER follow up Encounter Details Date Type Department Care Team (Late st Contact Info) Description 05/13/2024 5:20 PM EDT Office Visit [facility] [address] [facility] [place] [place] [address] Eugenio Flores MD [address] [facility] [id number] DDD (degenerative disc disease), thoracic*; Atypical chest pain; Mid back pain, chronic; Lumbar back pain [...] before bedtime. 270 Tablet 1 02/25/2024 Active Etodolac 200 MG Oral Capsule (Lodine)Indications: [...] Sign Reading Time Taken Comments Blood Pressure 122/88 05/13/2024 4:54 PM EDT Pulse 80 05/13/2024 4:54 PM EDT Temperature 36.4 C (97.5 F) 05/13/2024 4:54 PM ED T Respiratory Rate 16 05/13/2024 4:54 PM EDT Oxygen Saturation 96% 05/13/2024 4:54 PM EDT Inhaled Oxygen Concentration - - Weight 74.4 kg (164 lb) 05/13/2024 4:54 PM EDT Height 165.1 cm (5' 5") 05/13/2024 4:54 PM EDT Body Mass Index 27.29 05/13/2024 4:54 PM EDT documented in this encounter Progress Notes * Eugenio Flores MD - 05/13/2024 5:31 PM EDT Images from the original note were not included. Assessment and Plan Atypical chest pain has resolved. This seems to be musculoskeletal in nature. Continue etodolac on an as needed basis until arm pain resolves. She has a history of thoracic and lumbar degenerative disc disease with thoracic and lumbar pain chronically. She has been working with physical therapy over the last 6 weeks and has not had any significant improvement in symptoms. This point I think it isreasonable to get an MRI of the thoracic and lumbar spine and to consider evaluation by interventional pain based on results. 1. Atypical chest pain - Etodolac 200 MG Oral Capsule (Lodine); Take 1 Capsule by mouth in the morning and 1 Capsule at noon and 1 Capsule before bedtime. with food for pain. Dispense: 30 Capsule; Refill: 0 2. DDD (degenerative disc disease), thoracic - MRI T SPINE WO CONTRAST; Future - MRI L SPINE WO CONTRAST; Future 3. Mid back pain, chronic - MRI T SPINE WO CONTRAST; Future - MRI L SPINE WO CONTRAST; Future 4. Lumbar back pain - MRI T SPINE WO CONTRAST; Future - MRI L SPINE WO CONTRAST; Future Wrap-Up Follow up as needed. History of Present Illness The patient is a 53-year-old female with past medical history IBS, fibromyalgia, hereditary spherocytosis, panic disorder who presents for ED follow up. Patient was seen at [facility] on 05/07/2024. Patient initially presented due to chest pain. Patient was evaluated and had troponin negative x2. Imaging was negative which included a chest x-ray. List of lab work obtained was largely unremarkable other than anemia and elevated bilirubin her baseline. Given unremarkable workup she was discharged to home with etodolac as needed for pain. Patient also with chronic lumbar and thoracic back pain. She has been working with physical therapyover the last 6 weeks without significant improvement in symptoms. [id number] pain medications have also not provided significant relief. Pain does not radiate down the legs. Physical Exam Vitals: 05/13/24 1654 Temp: 36.4 C (97.5 F) Pulse: 80 Resp: 16 SpO2: 96% BP: 122/88 BMI: 27.29 Physical Exam Physical Exam Vitals reviewed. Constitutional: General: She is not in acute distress. Cardiovascular: Rate and Rhythm: Normal rate and regular rhythm. Heart sounds: No murmur heard. Pulmonary: Effort: Pulmonary effort is normal. No respiratory distress. Breath sounds: Normal breath sounds. Musculoskeletal: Comments: Patient with mild tenderness to palpation of the paraspinal muscles bilaterally. Skin: General: Skin is warm and dry. Neurological: General: No focal deficit present. Mental Status: She is alert. This note has been completed in part utilizing [employer] Voice Recognition Software. Due to technical limitations of the software, grammatical errors, random word insertions, prounoun errors, and incomplete sentences may occur. Any formal questions or concerns about the content, text, or information contained within the body of this dictation should be directly addressed to the provider for clarification. documented in this encounter Nursing Notes * Indiana Kraft LPN - 05/13/2024 4:54 PM EDT Beatris Momin is a 53 year old female who presents today for Chief Complaint Patient presents with Hospital Follow-Up Pt states that she is her for an ER follow up documented in this encounter Plan of Treatment Upcoming Encounters Date Type Department Care Team (Late st Contact Info) Description 05/30/2024 8:00 AM EDT Imaging Radiology [address] [place] [address] 05/30/2024 9:30 AM EDT Imaging Radiology [address] [place] [address] 06/02/2024 3:45 PM EDT Imaging Radiology [address] [place] [address] 06/16/2024 1:40 PM EDT [facility] Visit [facility] [address] [place] [phone] Radha Leung MD [address] [place] [address] 11/02/2024 4:00 PM EDT Imaging Radiology, [facility] [address] [facility] [place] [address] 03/05/2025 2:20 PM EDT Office Visit Family [facility] [address] [facility] [phone] DecemberEugenio MD [address] [facility] [address] Scheduled Orders Name Type Priority Associated Diagnoses Orde r Schedule MRI T SPINE WO CONTRAST Medical Imaging Routine DDD (degenerative disc disease), thoracic Mid back pain, chronic Lumbar back pain Expected: 05/13/2024, Expires: 06/12/2025 MRI L SPINE WO CONTRAST Medical Imaging Routine DDD (degenerative disc disease), thoracic Mid back pain, chronic Lumbar back pain Expected: 05/13/2024, Expires: 06/12/2025 Scheduled Procedures Name Priority Associated Diagnoses Date/Ti [...] as of this encounter Visit Diagnoses Diagnosis DDD (degenerative disc disease), thoracic- Primary Degeneration of thoracic or thoracolumbar intervertebral disc Atypical chest pain Other chest pain Mid back pain, chronic Backache, unspecified Lumbar back pain Lumbago Screening mammogram for breast cancer documented in this encounter Care Teams Certified Orthotist/Pedorthist Relationship Specialty Start Date End Date December, Eugenio Zamora MD [address] [place] [address] PCP - General Family Medicine 02/25/23 documented as of this encounter
[2024-10-09 01:34] LABS: Hemoglobin 8.1 g/dl (12.0-16.0)
[2024-10-09] MEDS: OSELTAMIVIR PHOSPHATE 75 MG CAP PO SCH (06:32)
[2024-10-09 07:16] LABS: Basophils # (auto) 0.02 K/uL (0.00-0.20); Basophils % (auto) 0.9 %; Eosinophils # (auto) 0.02 K/uL (0.00-0.50); Eosinophils % (auto) 0.9 %; Hematocrit (blood only) 24.1 % (37.0-47.0); Hemoglobin 8.1 g/dl (12.0-16.0); Immature Granulocytes # (auto) 0.01 K/uL (0.01-0.20); Immature Granulocytes % (auto) 0.5 %; Lymphocytes # (auto) 0.79 K/uL (1.20-3.40); Lymphocytes % (auto) 35.9 %; Mean Corpuscular Hemoglobin 35.8 pg (25.0-34.0); Mean Corpuscular Hgb Conc 33.6 g/dL (32.0-36.0); Mean Corpuscular Volume 106.6 fL (80.0-100.0); Monocytes # (auto) 0.19 K/uL (0.11-0.59); Monocytes % (auto) 8.6 %; Neutrophils # (auto) 1.17 K/uL (1.40-6.50); Neutrophils % (auto) 53.2 %; Nucleated RBC # (auto) 0.02 K/uL (0.00-0.12); Nucleated RBC % (auto) 0.9 %; Platelet Count 124 K/uL (130-400); RDW Coefficient of Variation 18.5 % (11.5-14.5); RDW Standard Deviation 72.2 fL (36.4-46.3); Red Blood Count 2.26 M/uL (4.20-5.40)
[2024-10-09] MEDS: ACETAMINOPHEN 325 MG TAB PO PRN (07:23)
[2024-10-09 07:40] LABS: Albumin Globulin Ratio 2.1 (0.9-2); Albumin Level 3.9 gm/dl (3.4-5.0); BUN Creatinine Ratio 27.3 (10-20); Bilirubin,Total 1.5 mg/dl (0.2-1.0); Calcium 8.5 mg/dl (8.6-10.3); Creatinine Clr Calc Pharmacy 115.5 ml/min; Globulin 1.9 gm/dl (2.5-4.0); Potassium 4.3 mmol/L (3.5-5.1); Total Protein 5.8 gm/dl (6.0-8.3)
[2024-10-09] MEDS: PANTOprazole 40 MG TAB PO SCH (09:46)
--- NOTE | 2024-10-09 12:25 | Electrocardiogram Report ---
Test Reason : Blood Pressure : */* mmHG Vent. Rate : 74 BPM Atrial Rate : 74 BPM P-R Int : 168 ms QRS Dur : 96 ms QT Int : 424 ms P-R-T Axes : 54 28 11 degrees QTcB Int : 470 ms Normal sinus rhythm Normal ECG When compared with ECG of 07-May-2024 13:37, Nonspecific T wave abnormality now evident in Inferior leads Confirmed by Pedro Spring ([id number]) on 10/09/2024 12:25:13 PM Referred By: REFERRED SELF Confirmed By: Pedro Spring
--- NOTE | 2024-10-09 13:19 | Electrocardiogram Report ---
Test Reason : Blood Pressure : */* mmHG Vent. Rate : 69 BPM Atrial Rate : 69 BPM P-R Int : 164 ms QRS Dur : 94 ms QT Int : 404 ms P-R-T Axes : 44 14 37 degrees QTcB Int : 432 ms Normal sinus rhythm Normal ECG When compared with ECG of 08-Oct-2024 14:02, (unconfirmed) T wave amplitude has increased in Lateral leads Confirmed by Pedro Spring ([id number]) on 10/09/2024 1:18:56 PM Referred By: REFERRED SELF Confirmed By: Pedro Spring
--- NOTE | 2024-10-09 17:20 | Hospitalist Progress Note ---
Date of Service October 09, 2024 Assessment & Plan (1) Anemia: (2) Hereditary spherocytosis: Plan: Acute on chronic anemia Patient is 54-year-old female with PMH Hereditary spherocytosis, chronic anemia, GERD, HTN, postherpetic neuralgia, chronic back pain, presented to ER after reported syncopal event today at work. Reported jerking type movements lasting less than minute and pt had reported hypotension. -Upon arrival to ER patient afebrile, P: 77, R: 16, BP 88/51, 98% on room air. -Negative troponin. H/H: 6.8/20. (Hgb: 10 on 05/11/24). T bili: 1.7 -CT Head: no acute intracranial abnormality -Suspect worsening anemia in setting of influenza and underlying hereditary spherocytosis Plan: -In ER type and cross and 2 units PRBC ordered to be transfused. -monitor overnight -noted pancytopenia, f/u with hematology outpatient (3) Syncope: Plan: -Suspect syncope secondary to underlying anemia, dehydration and likely orthostatic hypotension. Suspect this was syncopal episode and less likely seizure -patient much improved this morning Plan: -Seizure precautions -Treatment for anemia as above (4) Influenza: Plan: -+Influenza A on biofire respiratory panel -CXR: no acute infiltrate -Isolation precautions -Start Tamiflu (5) HTN (hypertension): Plan: -resolved today (6) Hypokalemia: Plan: -replenished #Chronic back pain #H/O postherpetic neuralgia -Continue home gabapentin, methocarbamol prn Feeding/fluids: regular Analgesia: tylenol Sedation: na Thromboprophylaxis: SCDs Head up position: na Ulcer prophylaxis: na Glycemic control: na Spontaneous breathing trial: na Bowel care: miralax prn Indwelling catheter removal: na Deescalation of antibiotics: na I spent a total of 55 minutes in direct patient care, including [id number] time with the patient and/or family, reviewing medical records, ordering and reviewing diagnostic tests, and coordinating care with other healthcare providers. This time includes: history taking, physical examination, medical decision making, counseling, ECG interpretation, imaging interpretation, lab interpretation, orders, and education, excluding time spent in the performance of separately billed services. Admission and Anticipated Discharge Date Admission Date: October 08, 2024 Subjective Patient seen and examined at bedside. Patient is doing much better today. However she continues to feel a bit weaker and wants 1 more day in the hospital. I agree with this assessment as I think would be good to see if her blood counts stabilize. Lightheadedness has improved significantly, patient ambulating without concern. Review of Systems Review of Systems: CONSTITUTIONAL: slightly weaker than baseline EYES: Patient denies any visual symptoms. EARS, NOSE, AND THROAT: No difficulties with hearing. No symptoms of rhinitis or sore throat. CARDIOVASCULAR: Patient denies chest pains, palpitations, orthopnea and paroxysmal nocturnal dyspnea. RESPIRATORY: No dyspnea on exertion, no wheezing or cough. GI: No nausea, vomiting, diarrhea, constipation, abdominal pain, hematochezia or melena. : No urinary hesitancy or dribbling. No nocturia or urinary frequency. No abn ormal urethral discharge. MUSCULOSKELETAL: No myalgias or arthralgias. NEUROLOGIC: No chronic headaches, no seizures. Patient denies numbness, tingling or weakness. PSYCHIATRIC: Patient denies problems with mood disturbance. No problems with anxiety. ENDOCRINE: No excessive urination or excessive thirst. DERMATOLOGIC: Patient denies any rashes or skin changes. Physical Exam Physical Exam: Gen: A&O 3 NAD HEENT: NCAT, EOMI, not icteric. External ears normal. No rhinorrhea. Moist mucous membranes. Neck: Supple, full range of motion, no observable masses, No meningeal sign. Lungs: No Respiratory distress. CV: RRR, no edema. Abdomen: Soft, nondistended, No rebound tenderness. MSK: No joint swelling, no redness. Skin: No rashes, petechiae, lesions. Normal color per patient. Neuro: Normal Gait, Grossly intact. Psych: Appropriate for situation. Results & Data Results & Data Vital Signs (Past 12 Hours) Vital Signs Temp Pulse Pulse Resp BP Pulse Ox O2 Del Method 10/09/24 16:38 36.6 C 88 20 120/74 97 Room Air 10/09/24 12:16 36.9 C 97 H 18 102/67 96 Room Air 10/09/24 09:12 74 10/09/24 08:00 37.0 C 87 20 115/68 96 Room Air Laboratory Results - Personally reviewed, hemoglobin is stabilized at 8 posttransfusion, noted mild leukopenia and positive for the flu Medications Administered Acetaminophen (Acetaminophen 325 Mg Tab) 650 mg PO Q4H PRN PRN Reason: Pain or Fever Stop: 11/07/24 19:58 Last Admin: 10/09/24 07:23 Dose: 650 mg Documented By: DLR Fluticasone Propionate (Fluticasone Propionate Na Spr 16 Gm Btl) 2 sprays NA DAILY [facility] Stop: 11/07/24 19:58 Last Admin: 10/09/24 07:24 Dose: 2 sprays Documented By: Admin: 10/08/24 20:41 Dose: 2 sprays Documented By: BECCA Oseltamivir Phosphate (Oseltamivir Phosphate 75 Mg Cap) 75 mg PO BID [facility]; Protocol Stop: 10/14/24 06:29 Last Admin: 10/09/24 06:32 Dose: 75 mg Documented By: AILEEN Pantoprazole Sodium (Pantoprazole 40 Mg Tab) 40 mg PO DAILY [facility] Stop: 11/08/24 08:59 Last Admin: 10/09/24 09:46 Dose: 40 mg Documented By: ALFRED
[2024-10-09] MEDS: POLYETHYLENE (MIRALAX) 17 GM PACK PO PRN (21:18)
[2024-10-09] MEDS: SODIUM CHLORIDE 0.9% 500 ML IV SCH ×2 (21:59→22:23)
[2024-10-09] MEDS: ONDANSETRON INJ 2 MG/ML 2 ML VIAL IV PRN (22:24)
--- NOTE | 2024-10-10 06:46 | Oncology Consultation ---
Date of Consultation October 10, 2024 Assessment & Plan (1) Hereditary spherocytosis: (2) Influenza A: Plan -History of hereditary spherocytosis. Patient presenting with severe anemia. She is s/p 1 unit PRBC transfusion with improvement in hemoglobin to 8.3.Will obtain peripheral smear review by pathology, reticulocyte count, Eileen test.If reticulocyte count is low, will check for parvovirus infection. -Clinical exam suggestive of significant splenomegaly. Recommend obtaining abdominal ultrasound. -Folic acid 1 mg p.o. daily -B12 1000 mcg p.o. daily for low normal B12 level In the setting of possible hemolysis from hereditary spherocytosis -If patient is discharged home today, recommend rechecking CBC within a week. I will schedule her for outpatient follow-up with me in about 2 weeks. History of Present Illness Reason for Consultation: Hereditary spherocytosis Attending Physician: Edward Smith MD History of Present Illness 54-year-old female with history of hereditary spherocytosis Who presented to [facility] on 10/08/2024 following a syncopal episode at work. Labs obtained revealed severe anemia with hemoglobin of 6.8, hematocrit of 20. Total bilirubin was elevated at 1.7, LDH was normal at 131. Respiratory panel revealed influenza A. She was given 1 unit PRBC transfusion with improvement in hemoglobin to 8.1 on 10/09/2024 and 8.3 today.Anemia labs revealed elevated ferritin of 576, low normal B12 level of 288 and folate of 20. She states that she has a history of hereditary spherocytosis and was previously followed by hematology at [facility]. Has not been seen by hematology in several years. Baseline hemoglobin per patient is usually around 9-10.She still has her spleen but has had cholecystectomy Allergies Allergy/AdvReac Type Severity Reaction Status Date / Time Penicillins Allergy Unknown DOESN'T Verified 05/07/24 16:51 KNOW WHAT REACTION SHE HAD Home Medications Medication Instructions Recorded Confirmed Type ibuprofen 200 mg tablet 200 mg PO Q6H PRN Pain 07/04/21 10/08/24 History methocarbamol 500 mg tablet 500 mg PO DAILY PRN Muscle Spasm 07/04/21 10/08/24 History calcium carbonate 500 mg PO QPM 05/07/24 10/08/24 History cholecalciferol (vitamin D3) 25 1,000 mcg PO QPM 05/07/24 10/08/24 History mcg (1,000 unit) tablet gabapentin 400 mg capsule 400 mg PO DAILY PRN Pain 05/07/24 10/08/24 History multivitamin 1 tab PO QPM 05/07/24 10/08/24 History alendronate 70 mg tablet 70 mg PO WK 10/08/24 10/08/24 History hyoscyamine sulfate 0.125 mg tablet 0.125 mg PO Q4H PRN cramp/abd pain 10/08/24 10/08/24 History lisinopril 10 1 tab PO QAM 10/08/24 10/08/24 History mg-hydrochlorothiazide 12.5 mg tablet omeprazole 40 mg capsule,delayed 40 mg PO DAILY PRN Other 10/08/24 10/08/24 History release Patient History Medical History HTN (hypertension) Hereditary spherocytosis Fibromyalgia Migraines Surgical History (Updated 10/08/24 @ 18:10 by Riya Jackson PA-C) History of colonoscopy History of cholecystectomy Family History (Updated 10/08/24 @ 18:10 by Riya Jackson PA-C) Other Breast cancer Hypertension Stroke Social History Smoking Status: Never smoker Hx Alcohol Use: No Hx Substance Use: No Preferred Language: Malagasy Communication Ability: Effective Beliefs That Will Affect Care: None Current Living Situation: Spouse Feels Safe at Home: Yes Safety Concerns: Feels Safe At This Time Assistive Devices: None Results & Data Vital Signs (Past 12 Hours) Vital Signs Temp Pulse Pulse Resp BP Pulse Ox O2 Del Method 10/10/24 03:25 37.2 C 64 19 134/74 98 Room Air 10/09/24 23:27 36.9 C 69 14 145/87 H 97 Room Air 10/09/24 22:05 89 10/09/24 19:20 37.0 C 74 16 138/83 97 Room Air
[2024-10-10 08:10] VITALS: RESP 18
[2024-10-10 08:14] LABS: Hematocrit (blood only) 24.2 % (37.0-47.0); Hemoglobin 8.3 g/dl (12.0-16.0); Mean Corpuscular Hemoglobin 36.2 pg (25.0-34.0); Mean Corpuscular Hgb Conc 34.3 g/dL (32.0-36.0); Mean Corpuscular Volume 105.7 fL (80.0-100.0); Platelet Count 123 K/uL (130-400); RDW Coefficient of Variation 17.2 % (11.5-14.5); RDW Standard Deviation 66.6 fL (36.4-46.3); Red Blood Count 2.29 M/uL (4.20-5.40); Reticulocyte % 1.03 % (0.50-2.00)
[2024-10-10 08:38] LABS: BUN Creatinine Ratio 23.3 (10-20); Calcium 8.6 mg/dl (8.6-10.3); Creatinine Clr Calc Pharmacy 104.9 ml/min
[2024-10-10 11:46] VITALS: PULSE 87; TEMP 98.2; O2SAT 98
[2024-10-10 13:10] VITALS: BP 112/66
--- NOTE | 2024-10-10 14:29 | Ultrasound Report ---
EXAMINATION: US abdomen Limited COMPARISON: None HISTORY: Abdominal pain TECHNIQUE: The upper abdomen was scanned in standard fashion with specialized ultrasound transducers using both solares scale and limited color Doppler techniques. Findings: The spleen is significantly enlarged, having a length of 18.3 cm. Enlarged left kidney measuring 16.1 cm, related to several, large anechoic and simple appearing cysts. For example an inferior pole cyst measures 7.8 cm. The right kidney is normal in size and appearance measuring 10.9 cm. No hydronephrosis or visualized mass. The liver is enlarged measuring 19.3 cm. The liver demonstrates mild increased echogenicity, suggesting steatosis. No definitely visualized hepatic mass. The gallbladder is not seen or not evaluated on this exam. A cholecystectomy was seen on a prior CT. Impression: 1. Hepatosplenomegaly, as above. Electronically signed by Josh Mcgraw 10-10-2024 2:28 PM
--- NOTE | 2024-10-10 15:09 | Discharge Summary ---
Discharge Summary Date of Service October 10, 2024 Principal Dx & Hospital Course #1 = Principal Diagnosis (1) Anemia: (2) Hereditary spherocytosis: Acute on chronic anemia Patient is 54-year-old female with PMH Hereditary spherocytosis, chronic anemia, GERD, HTN, postherpetic neuralgia, chronic back pain, presented to ER after reported syncopal event today at work. Reported jerking type movements lasting less than minute and pt had reported hypotension. -Upon arrival to ER patient afebrile, P: 77, R: 16, BP 88/51, 98% on room air. -Negative troponin. H/H: 6.8/20. (Hgb: 10 on 05/11/24). T bili: 1.7 -CT Head: no acute intracranial abnormality -Suspect worsening anemia in setting of influenza and underlying hereditary spherocytosis Plan: -stable Hgb today -per hematology recs, US of abdomen ordered and resulted before discharge (3) Syncope: -Suspect syncope secondary to underlying anemia, dehydration and likely orthostatic hypotension. Suspect this was syncopal episode and less likely seizure -patient much improved this morning Plan: -Seizure precautions -Treatment for anemia as above (4) Influenza: -+Influenza A on biofire respiratory panel -CXR: no acute infiltrate -Isolation precautions -Start Tamiflu (5) HTN (hypertension): -resolved today (6) Hypokalemia: -replenished #Chronic back pain #H/O postherpetic neuralgia -Continue home gabapentin, methocarbamol prn Notes For Next Care Provider Patient is 54-year-old female with PMH Hereditary spherocytosis, chronic anemia, GERD, HTN, postherpetic neuralgia, chronic back pain, presented to ER after reported syncopal event. In the ED noted to have acute blood loss anemia, transfused 2 units of blood, admitted to medicine for further workup. On medicine, hematology consulted, recommended US of abdomen before discharge. Hgb stabilized overnight. On 10/10/2024 patient feels well, ambulating and Hgb stable, stable for discharge home. Medication Changes From Visit -tamiflu Admission HPI Per Admitting Provider Patient is 54-year-old female with PMH Hereditary spherocytosis, chronic anemia, GERD, HTN, postherpetic neuralgia, chronic back pain, presented to ER after reported syncopal event today. Patient reports past couple of days with congestion, cough, nausea, dizziness, weakness, and decreased appetite. Admits to decreased oral intake. 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 States feeling dizzy today. States that she had just ate chicken salad sandwich and was walked to talk to another adult when she had a syncopal episode. Coworker was able to catch patient and lowered her to the ground and she did not have a fall or head injury. States she had some noted jerking motion for approximately 30 seconds. Reports was evaluated at school nurse and had low BP and EMS called. No history of seizure. Reports other family members with similar cough symptoms just prior to patient's onset. States has been approximately 19 years since she required a blood transfusion and that was at the time of of child. She reports hemoglobin have been stable and she hasn't followed with hematology for years. States chronic intermittent abdominal cramping but denies any current abdominal pain. Reports has some back pain and has postherpetic neuralgia that has improved and has gabapentin to use as needed. Uses ibuprofen 200-400mg daily. Denies diaphoresis, V/D/C, vision changes, neck pain, CP, SOB, orthopnea, palpitations, hemoptysis, current abdominal pain, paresthesias, extremity edema, rashes, urinary symptoms. Denies loss control of bowel/bladder or tongue biting. Discharge Exam Gen: A&O 3 NAD HEENT: NCAT, EOMI, not icteric. External ears normal. No rhinorrhea. Moist mucous membranes. Neck: Supple, full range of motion, no observable masses, No meningeal sign. Lungs: No Respiratory distress. CV: RRR, no edema. Abdomen: Soft, nondistended, No rebound tenderness. MSK: No joint swelling, no redness. Skin: No rashes, petechiae, lesions. Normal color per patient. Neuro: Normal Gait, Grossly intact. Psych: Appropriate for situation. Updated Medication List Medication Instructions Recorded Confirmed Type methocarbamol 500 mg tablet 500 mg PO DAILY PRN Muscle Spasm 07/04/21 10/08/24 History calcium carbonate 500 mg PO QPM 05/07/24 10/08/24 History cholecalciferol (vitamin D3) 25 1,000 mcg PO QPM 05/07/24 10/08/24 History mcg (1,000 unit) tablet gabapentin 400 mg capsule 400 mg PO DAILY PRN Pain 05/07/24 10/08/24 History multivitamin 1 tab PO QPM 05/07/24 10/08/24 History alendronate 70 mg tablet 70 mg PO WK 10/08/24 10/08/24 History hyoscyamine sulfate 0.125 mg tablet 0.125 mg PO Q4H PRN cramp/abd pain 10/08/24 10/08/24 History lisinopril 10 1 tab PO QAM 10/08/24 10/08/24 History mg-hydrochlorothiazide 12.5 mg tablet omeprazole 40 mg capsule,delayed 40 mg PO DAILY PRN Other 10/08/24 10/08/24 History release oseltamivir 75 mg capsule (Tamiflu) 75 mg PO BID #30 caps 10/10/24 Rx Hospital Stay Data Consultations 10/08/24 16:33 ED Decision to Admit Stat 10/08/24 17:54 Consult Hematology Routine Diagnostic Imagining Performed 10/08/24 15:16 CT head/brain wo con Stat 10/10/24 11:35 US abdomen limited Urgent Pending Results Patient Have Any Pending Studies at Discharge: No Discharge Instructions Given to Patient (Per Discharging Provider) 1. Establish with hematology outpatient. 2. CBC in one week. 3. Stay hydrated. Total Time Total Time Spent Total Time Spent (In Minutes): I spent a total of 35 minutes in direct patient care, including [id number] time with the patient and/or family, reviewing medical records, ordering and reviewing diagnostic tests, and coordinating care with other healthcare providers. This time includes: history taking, physical examination, medical decision making, counseling, ECG interpretation, imaging interpretation, lab interpretation, orders, and education, excluding time spent in the performance of separately billed services.
== END 2024-10-10 15:03 | disposition home or self-care (01) | DRG 812 ==
LOC: ED 13:56 → SUATTDRO 17:20 → EDINP 17:20 → 2S 20:00